=== PATIENT | male | born 1955 | race Caucasian/White ===

== ENCOUNTER → 2019-06-18 | Outpatient (CLI) | payer OTHER, SELFPAY ==
[2016-11-03 18:05] VITALS: BMI 28.3
--- NOTE | 2019-06-18 16:11 | RAD_ITS ---
STUDY: X-RAY - PELVIS AND RIGHT HIP REASON FOR EXAM: Male, 64 years old. Pain of the right hip. TECHNIQUE: 3 views of the pelvis and hip. COMPARISON: None. FINDINGS: There is a non-specific bowel gas pattern. Normal visualized soft tissue structures. Enthesophytes of the iliac crests bilaterally. Mild narrowing of the sacroiliac joints. Enthesophytes of the ischial tuberosities. Normal bilateral superior and inferior pubic rami. Normal pubic symphysis. There are osteoarthritic changes of the femoral head with marginal osteophyte formation. There is osteoarthritic spur formation of the acetabular rim. There is mild articular joint space narrowing of the hip. RAD/HIP, UNI W/ Pelvis 2-3 Views IMPRESSION: The pelvic ring is intact without fracture, osteolytic or blastic bone lesion. Mild to moderate degenerative arthrosis of the right hip. Negative for proximal femoral fracture. Mild narrowing of the sacroiliac joints. Enthesophytes of the iliac crests and initial tuberosities. Electronically Signed: Alia Dean MD at 21:46 EDT , Service support ,
== END | disposition home or self-care (01) ==
LOC: RAD 15:56
PROVIDERS: Family Provider Preventive Medicine Occupational Medicine; PCP Preventive Medicine Occupational Medicine; Referring Provider Preventive Medicine Occupational Medicine; Visit Provider Preventive Medicine Occupational Medicine
DX: M25.551 Pain in right hip (principal)
CPT/HCPCS: 73502

== ENCOUNTER → 2019-08-18 | Outpatient (CLI) | payer OTHER, SELFPAY ==
[2019-08-18 13:04] LABS: PSA,Total- Diagnostic 2.81 ng/mL (0.0-4.0)
== END | disposition home or self-care (01) ==
LOC: LAB 11:44
PROVIDERS: Family Provider Preventive Medicine Occupational Medicine; PCP Preventive Medicine Occupational Medicine; Referring Provider Nurse Practitioner Adult Health; Visit Provider Nurse Practitioner Adult Health
DX: R33.9 Retention of urine, unspecified (principal)
CPT/HCPCS: 36415; 84153

== ENCOUNTER → 2019-08-25 | Outpatient (CLI) | payer OTHER, SELFPAY | END | disposition home or self-care (01) | PROVIDERS: Family Provider Preventive Medicine Occupational Medicine; PCP Preventive Medicine Occupational Medicine; Referring Provider Urology; Visit Provider Urology | DX: R10.9 Unspecified abdominal pain (principal) | CPT/HCPCS: 87086 ==

== ENCOUNTER 2019-09-03 10:41 | Day surgery (SDC) | payer OTHER, SELFPAY ==
[2019-08-29 10:06] VITALS: BP 130/80; RESP 16; TEMP 36.9; O2SAT 96; BMI 27.9
[2019-08-29 12:06] LABS: Hemoglobin A1c 8.2 % (4.2-6.3)
[2019-09-03] VITALS (12 sets, daily range): BP systolic 134–169; BP diastolic 77–95; PULSE 59–80; RESP 16–18; TEMP 36.5–36.9; O2SAT 93–100; BMI 27.9; BMI 27.8
[2019-09-03] MEDS: Lactated Ringers 1,000 ML 100 ML IV (11:33)
[2019-09-03 12:01] LABS: Bedside Glucose 194 mg/dL (70-110)
[2019-09-03] MEDS: Cefazolin 2 GM in 0.9% Normal Saline 100 ML IV (12:19)
--- NOTE | 2019-09-03 12:22 | PCM.DC ---
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 Reason(s) for Visit for Discharge Instructions: TURP You will use the following diet at home:: Regular Discharge Activity: Return to Normal Activity Call your doctor if your incision/area has: Sudden Increased Bleeding Instructions: Transurethral Resection of the Prostate (TURP): Home Recovery Allergies/Adverse Reactions: Allergies Penicillins Allergy (Verified 09/03/19 11:04) Other FEVER cyclobenzaprine [From Flexeril] Adverse Reaction (Verified 09/03/19 11:04) Other TACHYCARDIA & DIAPHORESIS Medications to take at Discharge Glimepiride [Amaryl] 4 mg PO BID 11/03/16 Tamsulosin HCl [Flomax] 0.4 mg PO BID 11/03/16 Aspirin E.C. [Ecotrin] 81 mg PO DAILY@0800 08/29/19 Atorvastatin Calcium [Lipitor] 40 mg PO QHS 08/29/19 Glucosam/Spencer-Msm1/C/Odilon/Bosw [Osteo Bi-Flex Caplet] 1 ea PO BID 08/29/19 Losartan Potassium [Cozaar] 50 mg PO DAILY 08/29/19 Metformin HCl [Glucophage Xr] 500 mg PO BID 08/29/19 Multivitamin [Daily Multiple Vitamin] 1 ea PO DAILY 08/29/19 Potassium 99 mg PO DAILY 08/29/19 Ciprofloxacin [Cipro] 500 mg PO BID #14 tab 09/03/19 The following prescriptions were given: Ciprofloxacin [Cipro] 500 mg PO BID #14 tab Transmission Status: Pending to [id number] Primary Care Physician: Karson Ko DO [Primary Care Provider] - Test Results: Test results from this visit will be discussed in further detail at your follow-up appointment, if applicable. Please Follow Up With: Lili Pittman Dr When: 2 weeks
--- NOTE | 2019-09-03 12:35 | PROS_PTH ---
PATIENT: KITTY MERCADO LOC: [facility] U#:[id number] AGE/SX: 64/M ROOM: RE09/03/[address]: Dr. Jovani Tamayo MD : [id number] BED: DIS: 09/04/2019 SPEC #: [id number] RECD: 09/03/19 16:08 STATUS: JULIO JOANN #: [id number] LUIS: 09/03/19 12:[address]: Jovani Tamayo DEPT: SURGICAL PATHOLOGY RECD BY: Jeremias Mcintosh ENTERED: 09/04/19 11:24 SP TYPE: TURP OTHR DR: Dr. Kitty Ko, DO Tissues: Prostate, NOS Procedures: Surgery Specimen Level IV HEADER OPERATION: Cysto, TUR prostate, Olympus PRE-OP DIAGNOSIS: BPH with obstruction; urinary retention TISSUE SUBMITTED: Prostate tissue MICROSCOPIC DIAGNOSIS Prostate tissue, TUR: Benign prostatic hyperplasia, glandular and stromal type. Focal mild chronic inflammation. SJ:jacqueline 09/05/19 MICROSCOPIC DESCRIPTION Slides are reviewed. GROSS DESCRIPTION Received is one container labeled with the patient's name and designated prostate tissue. The specimen consists of multiple irregular fragments of pink-sanchez, rubbery, soft tissue that in aggregate weigh 2.8 gm and measure in aggregate 7.5 x 2.5 x 0.3 cm. The entire specimen is submitted in three cassettes. / WEST:jacqueline 09/04/19 TC:5 CPT: 98310
--- NOTE | 2019-09-03 12:54 | OP.PCM_ITS ---
Report of Operation Date of Procedure: 09/03/19 Pre-Operative Diagnosis: BPH with retention of urine Post-Operative Diagnosis: Same Surgery/Procedure Performed:: Transurethral resection of the prostate Description of Surgical Findings:: 64-year-old male with retention of urine presents to the operating room for resection of the prostate to restore normal voiding with talked about the risks benefits of a TURP side effects of retrograde ejaculation bleeding infection and risk of incontinence were discussed with the patient in preoperative setting all his questions were addressed. Patient was taken back to the operating of the smooth induction of general anesthesia he was placed in dorsolithotomy position the penis testicles are prepped and draped in usual sterile fashion I went into the bladder first with a 21 [place] cystourethroscope the entire length urethra is normal the sphincter was normal prostate was normal he did have a high riding bladder neck and a very large median lobe causing obstruction I then switched over to the 24 [place] noncontinuous flow resectoscope and I resected the median lobe very carefully not to injure the left or right ureteral orifice I then resected the prostate at the 6 o'clock position of the back to the verumontanum I then resect the right lobe of the prostate left lobe prostate, did a flow test had a nice flow and then resected the prostate had a nice wide open channel the sphincter was intact then placed the catheter in the bladder and continuous bladder irrigation obtained hemostasis the patient was taken back to PACU in good condition Type of Anesthesia:: General Drains: 22fr 3 way - Admit VTE Documentation VTE Present on Admission: No VTE Mechan Device Prophylaxis: SCD's
[2019-09-03] MEDS: 0.9% Normal Saline 1,000 ML 75 ML IV (14:10)
[2019-09-03 14:11] LABS: Bedside Glucose 165 mg/dL (70-110)
[2019-09-03] MEDS: Acetaminophen 325 MG Tablet PO (16:20)
[2019-09-03] MEDS: Glimepiride 4 MG Tablet PO (16:23)
[2019-09-03] MEDS: Tamsulosin HCl 0.4 MG Capsule PO (16:23)
[2019-09-03] MEDS: metFORMIN HCl 500 MG Tablet PO (16:23)
[2019-09-03] MEDS: Ciprofloxacin 400 MG/200 ML BAG 200 MG IV (20:05)
[2019-09-03] MEDS: Docusate Sodium 100 MG Capsule PO (22:44)
[2019-09-03] MEDS: Atorvastatin Calcium 40 MG Tablet PO (22:44)
[2019-09-04] MEDS: 0.9% Normal Saline 1,000 ML 75 ML IV (01:11)
[2019-09-04 04:17] VITALS: BP 132/71; PULSE 53; RESP 18; TEMP 36.5; O2SAT 97
[2019-09-04] MEDS: Acetaminophen 325 MG Tablet PO (07:41)
[2019-09-04] MEDS: Ciprofloxacin 400 MG/200 ML BAG 200 MG IV (08:47)
[2019-09-04] MEDS: Multivitamins,Therapeutic Tablet 1 TABLET PO (08:48)
[2019-09-04] MEDS: metFORMIN HCl 500 MG Tablet PO (08:48)
[2019-09-04] MEDS: Tamsulosin HCl 0.4 MG Capsule PO (08:48)
[2019-09-04] MEDS: Glimepiride 4 MG Tablet PO (08:48)
[2019-09-04] MEDS: Docusate Sodium 100 MG Capsule PO (08:49)
[2019-09-04] MEDS: Pantoprazole Sodium 40 MG Tablet PO (08:49)
[2019-09-04] MEDS: Losartan Potassium 50 MG Tablet PO (08:49)
[2019-09-04 12:36] VITALS: BP 133/76; PULSE 59; RESP 16; TEMP 36.8; O2SAT 98
--- NOTE | 2019-09-06 08:42 | PCM.HP.STD ---
History of Present Illness Date of Admission: 09/03/19 Chief Complaint: BPH with obstruction The patient is a 64 year old male with enlarged prostate presents the hospital for TURP Past Medical History Past Medical History (Chronic Problems): Chronic Problems Hyperlipidemia (Chronic) Controlled diabetes mellitus type II without complication (Chronic) Benign essential hypertension (Chronic) Allergies Penicillins Allergy (Verified 09/03/19 11:04) Other FEVER cyclobenzaprine [From Flexeril] Adverse Reaction (Verified 09/03/19 11:04) Other TACHYCARDIA & DIAPHORESIS Home Medications: Ambulatory Orders Medication Instructions Recorded Glimepiride [Amaryl] 4 mg PO BID 11/03/16 Tamsulosin HCl [Flomax] 0.4 mg PO BID 11/03/16 Atorvastatin Calcium [Lipitor] 40 mg PO QHS 08/29/19 Glucosam/Spencer-Msm1/C/Odilon/Bosw 1 ea PO BID 08/29/19 [Osteo Bi-Flex Caplet] Losartan Potassium [Cozaar] 50 mg PO DAILY 08/29/19 Metformin HCl [Glucophage Xr] 500 mg PO BID 08/29/19 Multivitamin [Daily Multiple 1 ea PO DAILY 08/29/19 Vitamin] Potassium 99 mg PO DAILY 08/29/19 Ciprofloxacin [Cipro] 500 mg PO BID #14 tab 09/03/19 Surgical History: noncontributory Smoking Status: Former smoker Tobacco Use: Non-smoker VTE Information - Inpt Only VTE Present on Admission: No - Physical Exam Vitals/I&O's: Vital Signs Temp Pulse Resp BP Pulse Ox 98.2 F 59 L 16 133/76 H 98 09/04/19 12:36 09/04/19 12:36 09/04/19 12:36 09/04/19 12:36 09/04/19 12:36 Oxygen Delivery Method Room Air Weight: 75.7 kg Body Mass Index (BMI) 27.8 Finger Stick Blood Glucose 165 Intake and Output for Last 24 Hours 09/04/19 09/05/19 09/06/19 23:59 23:59 23:59 Intake Total 1928.75 / 1928.75 Output Total 4350 / 4350 Balance -2421.25 / -2421.25 General: Alert, Oriented x3, Cooperative HEENT: Atraumatic, PERRLA, EOMI, Normocephalic Neck: Supple, No JVD, Negative Carotid Bruits Lungs: Clear to auscultation, Normal air movement Cardiovascular: Regular rate, No murmurs Abdomen: Bowel Sounds Present, Soft, Non Tender Extremities: No edema, Capillary Refill Less than 3 Seconds Skin: No rashes, No breakdown Musculoskeletal: No Tenderness to Palpation of Joints or Extremities Neurological: Cranial nerves II-XII grossly intact Psych/Mental Status: Normal Affect, Appropriate Assessment/Plan Plan for TURP
== END 2019-09-04 11:16 | disposition home or self-care (01) ==
LOC: SDC 10:41 → AC 10:43 → MS3 14:23
PROVIDERS: Anesthesiology; Family Provider Preventive Medicine Occupational Medicine; PCP Preventive Medicine Occupational Medicine; Referring Provider Urology; Visit Provider Urology
PROC: (CPT 52601; principal; 2019-09-03 12:25)
DX: N40.1 Benign prostatic hyperplasia with lower urinary tract symptoms (principal); R33.9 Retention of urine, unspecified; N41.1 Chronic prostatitis; E11.9 Type 2 diabetes mellitus without complications; I10 Essential (primary) hypertension; E78.5 Hyperlipidemia, unspecified; K21.9 Gastro-esophageal reflux disease without esophagitis; Z88.0 Allergy status to penicillin; Z79.84 Long term (current) use of oral hypoglycemic drugs; Z86.73 Personal history of transient ischemic attack (TIA), and cerebral infarction without residual deficits; Z87.891 Personal history of nicotine dependence
CPT/HCPCS: 52601; 36415; 82962; 83036; 88305; 99251; J7030; J7120; G0463; J0744; J2405

== ENCOUNTER 2019-09-15 10:41 | Emergency (ER) | payer OTHER, SELFPAY ==
[2019-09-03 14:54] VITALS: BMI 27.8
[2019-09-15 10:43] VITALS: BP 154/85; PULSE 89; RESP 18; TEMP 36.4; O2SAT 99; BMI 26.6
--- NOTE | 2019-09-15 10:58 | CT_ITS ---
STUDY: CT ABDOMEN AND PELVIS WITHOUT CONTRAST REASON FOR EXAM: Male, 64 years old. Left flank pain. History of UTI. RADIATION DOSAGE (If Supplied By Facility): CTDIvol = ( 8.01 ) mGy, DLP = ( 422.30 ) mGycm TECHNIQUE: Transaxial images were obtained from the dome of the diaphragm to the symphysis pubis without oral contrast, and without intravenous contrast. Sagittal and coronal images were reconstructed. Individualized dose optimization techniques were used for this CT. COMPARISON: None. FINDINGS: The visualized lung bases are unremarkable. The visualized portions of the heart are within normal limits. Normal liver. Normal gallbladder and extrahepatic biliary system. Normal spleen. Normal pancreas. Normal bilateral adrenal glands. Normal right kidney. Normal left kidney. A left-sided retroaortic renal vein is seen. There is a small hiatal hernia. Normal small intestine. Normal colon. The appendix is visualized and appears normal. There is scattered atherosclerotic calcification of the abdominal aorta, without a demonstrated aneurysm. Normal inferior vena cava. Normal retroperitoneum. Diffuse bladder wall thickening. Soft tissue density seen at the bladder base. Correlation with the cystoscopy is recommended. Prostatic calcification. There is a small umbilical hernia containing fat. There are diffuse degenerative changes of the visualized lumbar spine. Bony prominence of the superior aspect of both iliac bones. CT/Abdomen/Pelvis without Cont IMPRESSION: Diffuse bladder wall thickening with findings suggestive of soft tissue density at the bladder base. Correlation with cystoscopy is recommended. Electronically Signed: Rachid Cabrera, at 12:18 EST , Service support ,
--- NOTE | 2019-09-15 10:59 | ED.VIS.GEN ---
History of Present Illness Detail of Chief Complaint: Left flank pain, hematuria Informant: Patient Onset: Days - 4 days Context: Gradual Onset Timing: Waxes and wanes Current Severity: Moderate Maximum Severity: Moderate Narrative: Patient had cystoscopy and TURP performed September [address] Tamayo. Patient states he had approximately 3 days of hematuria following his surgery. Over the past 4 days he has noted increased hematuria and left flank pain. He denies fever or chills. He is not passing clots. He believes he is emptying his bladder. - Past Medical History (1) Benign essential hypertension Status: Chronic (2) Controlled diabetes mellitus type II without complication Status: Chronic (3) Hyperlipidemia Status: Chronic Past Medical History - Allergies and Home Meds Allergies/Adverse Reactions: Allergies Penicillins Allergy (Verified 09/15/19 10:43) Other FEVER cyclobenzaprine [From Flexeril] Adverse Reaction (Verified 09/15/19 10:43) Other TACHYCARDIA & DIAPHORESIS Primary Care Physician: Jovani Tamayo MD [STAFF PHYSICIAN] - 5-7 Days Karson Ko DO [Primary Care Provider] - Doctors: Dr. Tamayo Prior records reviewed: Yes Surgical History: noncontributory Smoking Status: Former smoker Review of Systems General: Denies: Chills, Fever Eyes: Denies: Visual changes - bilaterally ENT: Denies: Bilateral ear pain Cardiovascular: Denies: Chest pain Respiratory: Denies: Dyspnea, Cough Gastrointestinal: Reports: Abdominal pain - Left flank pain Genitourinary: Reports: Hematuria Musculoskeletal: Reports: Back pain - Left flank. Denies: Extremity Pain Skin: Denies: Rash Neurological: Denies: Headache Hematologic: Denies: Easy bruising, Easy bleeding Allergy: Denies: Uticaria Physical Exam Vital Signs/Narrative: Vital Signs Temp Pulse Resp BP Pulse Ox 09/15/19 10:43 97.5 F L 89 18 154/85 H 99 Inital Vital Signs reviewed: Yes General: Well nourished, Well developed Head: Normocephalic ENT: Moist mucous membranes Neck: Supple Cardiovascular: Regular rate, Regular rhythm Respiratory: No distress, CTA bilaterally Abdomen: Soft, Normal bowel sounds, Tender - Minimal tenderness in the left lower quadrant.. Negative for: Guarding, Rebound tenderness Back: CVA tenderness Skin: Normal color, No rash Neurological: Alert, Oriented x3 Psychological: Normal affect Diagnostic/Tx/Re-eval Impressions Abdomen/Pelvis CT 09/15/19 10:58 IMPRESSION: Diffuse bladder wall thickening with findings suggestive of soft tissue density at the bladder base. Correlation with cystoscopy is recommended. Electronically Signed: Rachid Cabrera, at 12:18 EST , Service support , 09/15/19 10:58 Abdomen/Pelvis without Cont [CT] Stat Laboratory Results 09/15/19 09/15/19 09/15/19 11:10 11:10 12:30 WBC 10.5 RBC 5.24 Hgb 15.3 Hct 46.2 MCV 88.2 MCH 29.2 MCHC 33.1 RDW Std Deviation 41.8 RDW Coeff of Star 12.9 Plt Count 244 MPV 9.2 Immature Gran % (Auto) 0.400 Neut % (Auto) 74.6 H Lymph % (Auto) 16.0 L [place] % (Auto) 7.1 Eos % (Auto) 1.6 Baso % (Auto) 0.3 Absolute Neuts (auto) 7.9 H Absolute Lymphs (auto) 1.69 Nucleated RBC % 0 Sodium 138 Potassium 4.1 Chloride 103 Carbon Dioxide 27.0 Anion Gap 8 BUN 12 Creatinine 1.02 Estim Creat Clear Calc 64.48 Est GFR (MDRD) Af Amer 95 Est GFR (MDRD) Non-Af 78 BUN/Creatinine Ratio 11.8 Glucose 210 H Calcium 9.4 Urine Color Red Urine Clarity Sl. Cloudy Urine pH 6.0 Ur Specific [place] 1.015 Urine Protein 100 H Urine Glucose (UA) 100 H Urine Ketones 5 H Urine Occult Blood 250 H Urine Nitrite Negative Urine Bilirubin Negative Urine Urobilinogen Normal Ur Leukocyte Esterase 500 H Urine RBC > 100 SEEN Urine WBC 25-50 SEEN Ur Squamous Epith Cells 0-5 SEEN Urine Bacteria RARE Urine Mucus 0 SEEN - Medical Decision Making Patient was given morphine and Zofran for pain while in the emergency room. I spoke with Dr. Tamayo, the patient's urologist. He states that patient can have recurrent bleeding after a TURP for up to 6 weeks. He thinks he likely just developed another episode of bleeding. He asked that we send the urine culture off and start the patient on antibiotics. Patient is instructed to increase fluids over the next several days. Patient is to return for worsening symptoms or any sensation is not able to urinate. He voices understanding and agreement. He will follow-up with Dr. Tamayo in the office. ED Disposition - Plan for ED Patient: Disposition: Home or Assisted Living Diagnosis: Hematuria, Cystitis Instructions: Bladder Infection, Male (Adult) Prescriptions: Ciprofloxacin [Cipro] 500 mg PO BID #14 tab Transmission Status: Received by [id number] Hydrocodone Bitart/Apap 5-325 [[place] 5MG-325MG] 1 tab PO Q6H PRN PRN 3 Days #10 tab PRN Reason: Pain Transmission Status: Received by [id number] Referrals: Karson Ko DO [Primary Care Provider] - Jovani Tamayo MD [STAFF PHYSICIAN] - 5-7 Days
[2019-09-15] MEDS: Ondansetron 4 MG/2 ML Vial IV (11:09)
[2019-09-15] MEDS: Morphine 4 MG/ML Syringe IV (11:10)
[2019-09-15] MEDS: 0.9% Normal Saline 1,000 ML 150 ML IV (11:10)
[2019-09-15 11:27] LABS: Absolute Lymphocyte Count 1.69 X10^3/uL (0.83-4.51); Absolute Neutrophil Count 7.9 X10^3/uL (2.0-7.7); Basophil# 0.03 X10^3/uL; Basophil% 0.3 % (0-1); Eosinophil# 0.17 X10^3/uL; Eosinophils% 1.6 % (0-5); Hematocrit 46.2 % (40-54); Hemoglobin 15.3 g/dL (13.0-16.5); Lymphocyte # 1.69 X10^3/ul (4.0); Mean Corp Hgb Conc 33.1 g/dL (32-36); Mean Corpuscular Hgb 29.2 pg (27.0-32.0); Mean Corpuscular Volume 88.2 fL (80-94); Mean Platelet Vol. 9.2 fl (6.2-12.0); Monocyte# 0.75 X10^3/uL; Monocyte% 7.1 % (0-10); NRBC Flagged by Analyzer 0 % (0-5); Neutrophil # 7.85 X10^3/uL (2.7-7.7); Neutrophil % 74.6 % (47-70); Platelet Count 244 K/mm3 (150-450); RBC Distribution Width CV 12.9 % (11.6-14.6); RBC Distribution Width SD 41.8 fl (35.1-43.9); Red Blood Count 5.24 M/mm3 (4.6-6.2); White Blood Count 10.5 K/mm3 (4.4-11.0)
[2019-09-15 11:43] LABS: Anion Gap 8 (5-15); BUN 12 mg/dL (7-18); BUN/Creat Ratio 11.8 RATIO (10-20); Calcium,Total 9.4 mg/dL (8.5-10.1); Chloride 103 mmol/L (98-107); Creatinine, Serum 1.02 mg/dL (0.70-1.30); EST Glomerular Filtration Rate 78 mL/min (>60); Est Glom Filt Rate - Afr Amer 95 mL/min (>60); Estimated Creatinine Clearance 64.48 ml/min; Glucose 210 mg/dL (74-106); Potassium 4.1 mmol/L (3.5-5.1); Sodium Level 138 mmol/L (136-145)
[2019-09-15 11:54] VITALS: BP 126/82; PULSE 75; RESP 16; O2SAT 98
[2019-09-15 12:31] LABS: Mucous, Urine 0 SEEN /hpf (<or=2+)
[2019-09-15 12:37] LABS: Color, Urine Red (Yellow); Glucose, Dipstick 100 mg/dl (Normal); Ketone-Dipstick 5 mg/dl (Negative); Leukocyte Esterase-Dipstick 500 /ul (Negative); Nitrite-Dipstick Negative (Negative); Occult Blood-Urine 250 /ul (Negative); Protein-Dipstick 100 mg/dl (Negative); Specific Gravity, Urine 1.015 (1.002-1.030); Urine Bilirubin Dipstick Negative (Negative); Urine Clarity Sl. Cloudy (Clear); Urine Urobilinogen Normal (Normal)
[2019-09-15 12:39] LABS: Red Blood Cells-Urine > 100 SEEN /hpf (0-5)
[2019-09-15 12:40] LABS: Bacteria RARE /hpf (None Seen); Squamous Epithelial Cells - UA 0-5 SEEN /hpf (0-5); White Blood Cells 25-50 SEEN /hpf (0-5)
--- NOTE | 2019-09-15 12:55 | ED.RN ---
BLADDER SCANNED 15-20 POST VOID. PT REFUSED TO ATTEMPT TO URINATE AGAIN.
[2019-09-15] MEDS: Ciprofloxacin 500 MG Tablet PO (13:30)
== END 2019-09-15 13:37 | disposition home or self-care (01) ==
PROVIDERS: Emergency Provider Emergency Medicine; Family Provider Preventive Medicine Occupational Medicine; PCP Preventive Medicine Occupational Medicine
DX: N30.91 Cystitis, unspecified with hematuria (principal); I10 Essential (primary) hypertension; E11.9 Type 2 diabetes mellitus without complications; E78.5 Hyperlipidemia, unspecified; Z79.84 Long term (current) use of oral hypoglycemic drugs; Z79.899 Other long term (current) drug therapy; Z87.891 Personal history of nicotine dependence
CPT/HCPCS: 74176; 80048; 81001; 85025; 87086; 96361; 96374; 96375; 99285; J7030; A4216; J2405

== ENCOUNTER 2019-10-21 21:28 | Inpatient (IN) | payer OTHER, SELFPAY ==
[2019-10-21 21:28] VITALS: BP 191/108; PULSE 68; RESP 16; TEMP 36.3; O2SAT 98; BMI 28.9
[2019-10-21 23:44] LABS: Bacteria 0 SEEN /hpf (None Seen); Mucous, Urine 0 SEEN /hpf (<or=2+); Squamous Epithelial Cells - UA 0 SEEN /hpf (0-5)
[2019-10-21 23:45] LABS: Color, Urine Red (Yellow); Glucose, Dipstick Normal (Normal); Ketone-Dipstick 15 mg/dl (Negative); Leukocyte Esterase-Dipstick Negative /ul (Negative); Nitrite-Dipstick Negative (Negative); Occult Blood-Urine 250 /ul (Negative); Protein-Dipstick 500 mg/dl (Negative); Specific Gravity, Urine 1.015 (1.002-1.030); Urine Bilirubin Dipstick Negative (Negative); Urine Clarity Turbid (Clear); Urine Urobilinogen Normal (Normal)
--- NOTE | 2019-10-21 23:56 | ED.DCSUM_ITS ---
History of Present Illness Chief Complaint: Complaint Narrative: Patient presenting for evaluation secondary to hematuria. Patient reports that he had a TURP procedure performed in the middle of August. He is been doing well since then. Patient states that at about 6 PM today he had a sudden onset of severe hematuria. He reports that he is urinating clots. He is having some difficulty with starting his stream. He does state that he feels that he is able to reasonably empty his bladder. Denies any flank pain. He denies any fevers. He denies any real pain associated with this at all. He is not on any sort of anticoagulants. No exacerbating relieving factors to the patient's symptoms. Past Medical History - Allergies and Home Meds Allergies/Adverse Reactions: Allergies Penicillins Allergy (Verified 09/15/19 10:43) Other FEVER cyclobenzaprine [From Flexeril] Adverse Reaction (Verified 09/15/19 10:43) Other TACHYCARDIA & DIAPHORESIS Past Medical History: - - Diabetes, hypertension, hyperlipidemia Surgical History: noncontributory Smoking Status: Former smoker Review of Systems All systems negative except as indicated General: Denies: Chills, Fever, Sweats Eyes: Denies: Visual changes - bilaterally, Diplopia ENT: Denies: Rhinorrhea, Sore throat Cardiovascular: Denies: Chest pain, Palpitations Respiratory: Denies: Dyspnea, Cough, Dyspnea on exertion Gastrointestinal: Denies: Abdominal pain, Nausea, Vomiting, Diarrhea, Melena, Hematochezia Genitourinary: Reports: Hematuria Musculoskeletal: Denies: Back pain, Extremity Pain Skin: Denies: Rash, Wounds Neurological: Denies: Headache, Weakness, Numbness Physical Exam Vital Signs/Narrative: Vital Signs Temp Pulse Resp BP Pulse Ox 10/21/19 21:28 97.3 F L 68 16 191/108 H 98 Inital Vital Signs reviewed: Yes General: Well nourished, Well developed, No Acute Distress Head: Normocephalic, Atraumatic Eyes: Perrl, EOMI ENT: Moist mucous membranes, No rhinorrhea Neck: Supple, Nontender Cardiovascular: Regular rate, Regular rhythm, No murmurs Respiratory: No distress, CTA bilaterally, Chest nontender Abdomen: Soft, Nontender, Nondistended, Normal bowel sounds Back: Nontender, Normal Inspection Extremities: Nontender, No edema Skin: Normal color, No rash Neurological: Alert, Oriented x3, Cranial nerves II-XII grossly intact, Normal Strength, Normal Sensation Psychological: Normal affect, Normal Mood Diagnostic/Tx/Re-eval - Medical Decision Making Patient presented secondary to hematuria. Three-way Vasquez catheter was placed and continuous irrigation was initiated. Urinalysis shows gross blood, but no significant bacteria. After over an hour of continuous irrigation the patient is continuing to have clots that we will clogged the three-way catheter intermittently and is continuing to have gross hematuria. I believe he requires admission. I discussed this with Dr. Tamayo ED Disposition - Plan for ED Patient: Disposition: Acute Care Hospital [facility] Diagnosis: Hematuria
[2019-10-22] VITALS (8 sets, daily range): BP systolic 114–153; BP diastolic 74–96; PULSE 63–81; RESP 16–18; TEMP 36.7–37.2; O2SAT 95–97; BMI 27.6; BMI 27.7
[2019-10-22 00:33] LABS: Red Blood Cells-Urine > 100 SEEN /hpf (0-5); White Blood Cells 10-25 SEEN /hpf (0-5)
[2019-10-22] MEDS: Lidocaine 2% Jelly 1 APPLIC Tube TOPICAL (00:48)
[2019-10-22] MEDS: 0.9% Saline Lock 10 ML Syringe IV ×2 (06:32→08:39)
--- NOTE | 2019-10-22 07:50 | HP.PCM_ITS ---
History of Present Illness Date of Admission: 10/22/19 Chief Complaint: Gross hematuria The patient is a 64 year old male who underwent a TURP for BPH obstruction in August was admitted to the hospital overnight for gross hematuria suddenly came on until now has been doing well with no bleeding whatsoever is been doing back to regular work does take a low-dose aspirin, admitted with a three-way catheter for gross hematuria. Past Medical History Past Medical History (Chronic Problems): Chronic Problems Hyperlipidemia (Chronic) Controlled diabetes mellitus type II without complication (Chronic) Benign essential hypertension (Chronic) Allergies Penicillins Allergy (Verified 09/15/19 10:43) Other FEVER cyclobenzaprine [From Flexeril] Adverse Reaction (Verified 09/15/19 10:43) Other TACHYCARDIA & DIAPHORESIS Home Medications: Ambulatory Orders Medication Instructions Recorded Glimepiride [Amaryl] 4 mg PO BID 11/03/16 Tamsulosin HCl [Flomax] 0.4 mg PO DAILY 11/03/16 Atorvastatin Calcium [Lipitor] 40 mg PO QHS 08/29/19 Glucosam/Spencer-Msm1/C/Odilon/Bosw 1 ea PO BID 08/29/19 [Osteo Bi-Flex Caplet] Losartan Potassium [Cozaar] 50 mg PO DAILY 08/29/19 Metformin HCl [Glucophage Xr] 500 mg PO BID 08/29/19 Multivitamin [Daily Multiple 1 ea PO DAILY 08/29/19 Vitamin] Aspirin [Adult Low Dose Aspirin EC] 1 tab PO DAILY 10/21/19 Surgical History: noncontributory Smoking Status: Former smoker VTE Information - Inpt Only VTE Present on Admission: No Patient Problems: Active and Suspected Problems Hematuria (Acute) - Physical Exam Vitals/I&O's: Vital Signs Temp Pulse Resp BP Pulse Ox 99.0 F 63 18 147/85 H 97 10/22/19 03:48 10/22/19 03:48 10/22/19 03:48 10/22/19 03:48 10/22/19 03:48 Oxygen Delivery Method Room Air Weight: 75.4 kg Body Mass Index (BMI) 27.6 Finger Stick Blood Glucose 165 Intake and Output for Last 24 Hours 10/20/19 10/21/19 10/22/19 23:59 23:59 23:59 Intake Total 200 / 200 Output Total 6475 / 6475 Balance -6275 / -6275 General: Alert, Oriented x3, Cooperative HEENT: Atraumatic, PERRLA, EOMI, Normocephalic Neck: Supple, No JVD, Negative Carotid Bruits Lungs: Clear to auscultation, Normal air movement Cardiovascular: Regular rate, No murmurs Abdomen: Bowel Sounds Present, Soft, Non Tender Extremities: No edema, Capillary Refill Less than 3 Seconds Skin: No rashes, No breakdown Musculoskeletal: No Tenderness to Palpation of Joints or Extremities Neurological: Cranial nerves II-XII grossly intact Psych/Mental Status: Normal Affect, Appropriate Laboratory Results 10/21/19 22:50: Urine Color Red, Urine Clarity Turbid, Urine pH 8.0, Ur Specific [place] 1.015, Urine Protein 500 H, Urine Glucose (UA) Normal, Urine Ketones 15 H, Urine Occult Blood 250 H, Urine Nitrite Negative, Urine Bilirubin Negative, Urine Urobilinogen Normal, Ur Leukocyte Esterase Negative, Urine RBC > 100 SEEN, Urine WBC 10-25 SEEN, Ur Squamous Epith Cells 0 SEEN, Urine Bacteria 0 SEEN, Urine Mucus 0 SEEN Current Medications Acetaminophen (Tylenol) 500 mg PO Q4H PRN PRN PRN Reason: Pain Score 1-10/10 Sodium Chloride () 250 mls @ 15 mls/hr IV .[id number] PRN PRN Reason: Saline Flush Sodium Chloride () 250 mls @ 15 mls/hr IV .[id number] PRN PRN Reason: Additional IVPB Infusion Cefazolin Sodium () 1 gm in 50 mls @ 100 mls/hr IV Q8 RUBINA Sodium Chloride () 1,000 mls @ 30 mls/hr IV .[id number] RUBINA Sodium Chloride () 10 - 40 ml IV UD PRN PRN Reason: SALINE FLUSH Last Admin: 10/22/19 06:32 Dose: 10 ml Documented by: Assessment/Plan All Active Problems Hematuria (Acute) Continue with continuous bladder irrigation, regular diet, I do not anticipate any operative needs right now. Once bleeding stops we will remove the catheter for voiding trial.
[2019-10-22] MEDS: Cefazolin 1 GM/50 ML BAG IV ×3 (08:36→21:59)
[2019-10-22] MEDS: Tamsulosin HCl 0.4 MG Capsule PO (09:43)
[2019-10-22] MEDS: 0.9% Normal Saline 1,000 ML 30 ML IV (09:43)
[2019-10-22] MEDS: Multivitamins,Therapeutic Tablet 1 TABLET PO (09:43)
[2019-10-22] MEDS: Losartan Potassium 25 MG Tablet 50 MG PO (09:43)
[2019-10-22] MEDS: Glimepiride 4 MG Tablet PO ×2 (09:43→16:58)
[2019-10-22] MEDS: metFORMIN (XR) 500 MG Tablet PO ×2 (09:43→17:00)
--- NOTE | 2019-10-22 14:40 | CASEMGMT ---
RN CM Face to Face with patient for initial transition planning/care coordination assessment. RN CM introduced self and role at [facility]. Patient lying in bed, alert and oriented. Patient willing to participate in assessment and is able to answer all questions appropriately. Care providers, pharmacy, and demographics verified. Patient wishes to discharge home, denies need for home health at this time. Patient states he has no further needs or concerns at this time. CM to follow for discharge planning needs that may arise. PCP: Stefani Specialists: [facility] Preferred Pharmacy: [facility] Insurance: MMO Prescription Benefit: yes Living Will/HPOA: yes, Addie Daigle LNOK: , step son Living Arrangements: Patient lives with and step son in 1 story home. Patient is independent at home. Transportation: self, family DME/HHC: Patient has BP cuff and glucometer at home. Patient denies HHC. Disposition Plan: Patient to discharge home with family support and follow-up plans in place. Luz WELDON, RN, CM
[2019-10-22] MEDS: Atorvastatin Calcium 40 MG Tablet PO (22:00)
[2019-10-23 03:21] VITALS: BP 121/69; PULSE 79; RESP 16; TEMP 36.6; O2SAT 97
[2019-10-23] MEDS: Cefazolin 1 GM/50 ML BAG IV (05:19)
--- NOTE | 2019-10-23 07:40 | PCM.PN.BLA ---
Progress Note Urine looks clear, will DC Vasquez catheter, if he able to urinate today then will discharge him home. Instructions a hold all blood thinners and not to return to work and need to see him next week.
--- NOTE | 2019-10-23 07:41 | PCM.DC.URO ---
Discharge Diet: Light diet - advance as tolerated Discharge Activity: Return to Normal Activity Return to work on:: 11/03/19 Lifting Restrictions: no lifting Call your doctor if your incision/area has: Sudden Increased Bleeding Suture Line Care: Avoid Pulling/Pushing, Avoid Pinching/Bending Allergies/Adverse Reactions: Allergies Penicillins Allergy (Verified 09/15/19 10:43) Other FEVER cyclobenzaprine [From Flexeril] Adverse Reaction (Verified 09/15/19 10:43) Other TACHYCARDIA & DIAPHORESIS Medications to take at Discharge Glimepiride [Amaryl] 4 mg PO BID 11/03/16 Tamsulosin HCl [Flomax] 0.4 mg PO DAILY 11/03/16 Atorvastatin Calcium [Lipitor] 40 mg PO QHS 08/29/19 Glucosam/Spencer-Msm1/C/Odilon/Bosw [Osteo Bi-Flex Caplet] 1 ea PO BID 08/29/19 Losartan Potassium [Cozaar] 50 mg PO DAILY 08/29/19 Metformin HCl [Glucophage Xr] 500 mg PO BID 08/29/19 Multivitamin [Daily Multiple Vitamin] 1 ea PO DAILY 08/29/19 Docusate Sodium [Colace] 100 mg PO BID #20 cap 10/22/19 Hydrocodone/Acetaminophen [Pierce 5-325 Tablet] 1 ea PO Q4H PRN PRN 5 Days #20 tab 10/22/19 The following prescriptions were given: Docusate Sodium [Colace] 100 mg PO BID #20 cap [facility]: [id number] Hydrocodone/Acetaminophen [Pierce 5-325 Tablet] 1 ea PO Q4H PRN PRN 5 Days #20 tab PRN Reason: Pain Score 1-10/10 Transmission Status: [id number] Primary Care Physician: Karson Ko DO [Primary Care Provider] - Test Results: Test results from this visit will be discussed in further detail at your follow-up appointment, if applicable. Please Follow Up With: Jovani Tamayo MD When: please call to make an appointment.
[2019-10-23 07:45] VITALS: BP 136/75; PULSE 80; RESP 16; TEMP 36.7; O2SAT 94
[2019-10-23 07:48] VITALS: PULSE 70
[2019-10-23] MEDS: Tamsulosin HCl 0.4 MG Capsule PO (07:55)
[2019-10-23] MEDS: Glimepiride 4 MG Tablet PO (07:55)
[2019-10-23] MEDS: Losartan Potassium 25 MG Tablet 50 MG PO (07:56)
[2019-10-23] MEDS: metFORMIN (XR) 500 MG Tablet PO (07:56)
[2019-10-23] MEDS: Multivitamins,Therapeutic Tablet 1 TABLET PO (07:56)
[2019-10-23 12:28] VITALS: BP 141/80; PULSE 94; RESP 16; TEMP 36.8; O2SAT 96
== END 2019-10-23 12:46 | disposition home or self-care (01) | DRG 696 ==
LOC: ED 23:36 → MS3 10-22 02:15
PROVIDERS: Admitting Provider Urology; Emergency Provider Emergency Medicine; Family Provider Preventive Medicine Occupational Medicine; PCP Preventive Medicine Occupational Medicine; Visit Provider Urology
DX: R31.0 Gross hematuria (principal); Z79.82 Long term (current) use of aspirin; E78.5 Hyperlipidemia, unspecified; I10 Essential (primary) hypertension; E11.9 Type 2 diabetes mellitus without complications; N40.0 Benign prostatic hyperplasia without lower urinary tract symptoms; Z79.84 Long term (current) use of oral hypoglycemic drugs; Z79.899 Other long term (current) drug therapy; Z87.891 Personal history of nicotine dependence
CPT/HCPCS: 51702; 81001; 99284; J7030; J7050; A4216

== ENCOUNTER 2022-03-01 08:56 | Observation (INO) | payer MEDICARE, OTHER, SELFPAY ==
--- NOTE | 2022-02-24 07:46 | EKG12_ITS ---
Test Reason : PRE OP Blood Pressure : / mmHG Vent. Rate : 055 BPM Atrial Rate : 055 BPM P-R Int : 256 ms QRS Dur : 118 ms QT Int : 458 ms P-R-T Axes : 022 009 030 degrees QTc Int : 438 ms Sinus bradycardia with 1st degree A-V block Otherwise normal ECG Confirmed by NATHEN CHACKO, AMANDA ([id number]), brands editor YOVANY CARRILLO ([id number]) on 02/27/2022 1:29:00 PM Referred By: Jovani Tamayo Confirmed By:AMANDA SENA MD
[2022-02-24 08:29] LABS: Hematocrit 43.3 % (40-54); Hemoglobin 14.4 g/dL (13.0-16.5); Mean Corp Hgb Conc 33.3 g/dL (32-36); Mean Corpuscular Hgb 30.4 pg (27.0-32.0); Mean Corpuscular Volume 91.5 fL (80-94); Mean Platelet Vol. 9.5 fl (6.2-12.0); Platelet Count 270 K/mm3 (150-450); RBC Distribution Width CV 12.7 % (11.6-14.6); RBC Distribution Width SD 42.5 fl (35.1-43.9); Red Blood Count 4.73 M/mm3 (4.6-6.2); White Blood Count 9.8 K/mm3 (4.4-11.0)
[2022-02-24 09:08] LABS: Anion Gap 7 (5-15); BUN 25 mg/dL (7-18); BUN/Creat Ratio 20.7 RATIO (10-20); Calcium,Total 9.3 mg/dL (8.5-10.1); Chloride 103 mmol/L (98-107); Creatinine, Serum 1.21 mg/dL (0.70-1.30); EST Glomerular Filtration Rate 64 mL/min (>60); Est Glom Filt Rate - Afr Amer 77 mL/min (>60); Glucose 192 mg/dL (74-106); Potassium 4.4 mmol/L (3.5-5.1); Sodium Level 137 mmol/L (136-145)
[2022-02-24 09:24] LABS: Hemoglobin A1c 9.1 % (3.8-5.6)
[2022-03-01] VITALS (8 sets, daily range): BP systolic 140–165; BP diastolic 73–87; PULSE 54–71; RESP 14–18; TEMP 36.4–36.9; O2SAT 94–100; BMI 27.4
--- NOTE | 2022-03-01 | PROS_PTH ---
PATIENT: KITTY MERCADO LOC: [facility]3 U#:[id number] AGE/SX: 66/M [place] [facility] [place]01/[address]: Dr. Jovani Tamayo MD : [id number] BED: 1 DIS: 03/02/2022 SPEC #: [id number] RECD: 03/01/22 13:00 STATUS: JULIO DAVID #: [id number] LUIS: 03/01/22 00:[address]: Jovani Tamayo DEPT: SURGICAL PATHOLOGY RECD BY: Jah Caldwell ENTERED: 03/01/22 13:00 SP TYPE: TURP OTHR DR: Dr. Kitty Ko DO Tissues: Prostate, NOS Procedures: Surgery Specimen Level IV HEADER OPERATION: Cysto, TUR prostate, Olympus PRE-OP DIAGNOSIS: BPH with obstruction TISSUE SUBMITTED: Prostate tissue MICROSCOPIC DIAGNOSIS Prostate, transurethral resection: Benign nodular hyperplasia. Mild chronic inflammation. Urothelium with mild chronic inflammation. AM:jacqueline 03/02/2022 MICROSCOPIC DESCRIPTION Slides are reviewed. GROSS DESCRIPTION Received is one container labeled with the patient's name and designated prostate tissue. The specimen consists of multiple irregular fragments of pink-sanchez, rubbery, soft tissue that in aggregate weigh 3.7 gm and measure in aggregate 4 x 4 x 1 cm. The entire specimen is submitted in four cassettes. / SJ:jacqueline 03/01/2022 TC:3 CPT: 75295
[2022-03-01 07:51] LABS: Prothrombin Time Fingerstick 12.6 SEC (11.7-14.9)
[2022-03-01] MEDS: Lactated Ringers 1,000 ML 15 ML IV (08:16)
[2022-03-01 08:26] LABS: Bedside Glucose 274 mg/dL (74-106)
--- NOTE | 2022-03-01 09:03 | PCM.HP.STD ---
HPI - General HPI Narrative KITTY MERCADO, is a 66 M who presents for TUrP for obstruction and Bph PFSH Medical History (Updated 02/22/22 @ 08:25 by Sara Novoa) Back pain Bradycardia Cardiology follow-up encounter Diabetes Dietary restriction Former smoker Heartburn High cholesterol History of atrial fibrillation History of echocardiogram History of irregular heartbeat History of lipoma History of stress test History of ulceration Hypertension Migraine headache Personal history of retained foreign body fully removed Prostate disease TIA (transient ischemic attack) Wears glasses Home Medications glimepiride 4 mg PO BID 11/03/16 [History Last Taken Unknown] atorvastatin 40 mg PO DAILY 08/29/19 [History Last Taken 03/01/22] bfoptqug-hupl-onp0-C-aguilar-bosw 1 ea PO BID 08/29/19 [History Last Taken Unknown] losartan 50 mg PO DAILY 08/29/19 [History Last Taken 03/01/22] metformin 1,000 mg PO BID 08/29/19 [History Last Taken Unknown] multivitamin 1 ea PO DAILY 08/29/19 [History Last Taken Unknown] atenolol 25 mg PO DAILY 02/22/22 [History Last Taken 03/01/22] finasteride 5 mg PO DAILY 02/22/22 [History Last Taken Unknown] flecainide 100 mg PO Q12H 02/22/22 [History Last Taken 03/01/22] warfarin 5 mg PO SUMOWEFRSA 02/22/22 [History Last Taken 02/20/22] warfarin 7 mg PO TUTH 02/22/22 [History Last Taken 02/20/22] ciprofloxacin HCl [Cipro] 500 mg PO BID #10 tab 03/01/22 [Rx Last Taken Unknown] Allergy/AdvReac Type Severity Reaction Status Date / Time adhesive tape Allergy Rash Verified 03/01/22 07:58 Penicillins Allergy Other Verified 03/01/22 07:58 cyclobenzaprine AdvReac Other Verified 03/01/22 07:58 [From Flexeril] Surgical History (Updated 02/22/22 @ 08:25 by Sara Novoa) History of transurethral resection of prostate Hx of left knee surgery Social History Smoking Status: Former smoker Vital Signs Vital Signs Vital Signs: 03/01/22 08:06 Temperature 97.6 F L Temperature Source Temporal Pulse Rate 54 L Respiratory Rate 16 Respiratory Pattern Normal Blood Pressure 153/79 H Blood Pressure Mean 103 Blood Pressure Source Monitor Blood Pressure Position Semi-Fowlers Blood Pressure Location Right Arm Pulse Ox 98 Oxygen Delivery Method Room Air Weight Weight: 74.843 kg Body Mass Index (BMI) 27.4 Results Lab / Micro Data Result Diagrams: 02/24/22 08:00 02/24/22 08:00 Labs: Laboratory Results - last 24 hr 03/01/22 07:45: POC PT 12.6, INR 1.0 03/01/22 07:45: POC Glucose 274 H
--- NOTE | 2022-03-01 09:04 | PCM.DC ---
Discharge Instructions Diet Discharge Diet: No restrictions Dressing / Incision Call your doctor if your incision/area has: Continuous Slow Oozing, Increased Pain/ Swelling, Increased Redness and Foul Smelling Discharge Call your doctor if you observe: Fever of 101 or Higher, Numbness or Tingling, Shortness of breath, Dizziness, Calf discomfort and Uncontrolled pain Follow Up Care Please Follow Up With: Jovani Tamayo MD Test Results: Test results from this visit will be discussed in further detail at your follow-up appointment, if applicable. Discharge Plan Admission Primary Reason for Your Visit: CATRACHO Attending Provider: Jovani Tamayo Primary Care Provider: Karson Ko Instructions Patient Instructions: CATRACHO Home Recovery Discharge Orders/Prescriptions Prescriptions: New ciprofloxacin HCl [Cipro] 500 mg tablet 500 mg PO BID Qty: 10 RF: 0 Continued glimepiride 4 MG tablet 4 mg PO BID RF: 0 multivitamin 1 EACH tablet 1 ea PO DAILY RF: 0 losartan 50 MG tablet 50 mg PO DAILY RF: 0 atorvastatin 40 MG tablet 40 mg PO DAILY RF: 0 metformin 500 MG tablet extended release 24 hr 1,000 mg PO BID RF: 0 lbsabfpl-gnjz-emq4-C-aguilar-bosw 1 EACH tablet 1 ea PO BID RF: 0 atenolol 25 mg Tablet 25 mg PO DAILY RF: 0 flecainide 100 mg Tablet 100 mg PO Q12H RF: 0 finasteride 5 mg Tablet 5 mg PO DAILY RF: 0 Held warfarin 5 mg Tablet 5 mg PO SUMOWEFRSA RF: 0 Hold Instructions: Resume on 03/10/22. warfarin 5 mg Tablet 7 mg PO TUTH RF: 0 Hold Instructions: Resume on 03/10/22. Referrals / Follow Up: Jovani Tamayo MD [STAFF PHYSICIAN] - Karson Ko DO [Primary Care Provider] - Disposition Disposition (needs filled in before D/C Order can be placed): Home, Self Care
--- NOTE | 2022-03-01 09:37 | OP.PCM_ITS ---
Report of Operation Date of Procedure: 03/01/22 Pre-Operative Diagnosis: bph with obstruction Post-Operative Diagnosis: same Surgery/Procedure Performed:: TURP Description of Surgical Findings:: In the preoperative setting I discussed with the patient how the surgery would be done with expect afterwards. We discussed how a prostate resection is done and we discussed the risk of the surgery including, bleeding, infection, retrograde ejaculation, changes with ejaculation or intercourse,. We discussed the possibility that the resection of the prostate may not alleviate his urinary symptoms. We discussed the small risk of developing scar tissue along the urethral channel and strictures. We also discussed the chance of the prostate could grow back and he may need further surgery or treatment in the future for prostate problems. Patient was taken back to the operating room, timeout procedure was performed, he was identified and marked and placed on the operating room table. He underwent general anesthesia. He was placed in dorsolithotomy position. Penis and testicles were prepped and draped in usual sterile fashion. Went into the bladder using the visual obturator with a resectoscope. Once inside the bladder identified the right and left ureteral orifice. I then identified the prostate and the anatomy of the prostate. I marked out the area of the sphincter and the verumontanum was identified. I then proceeded with the prostate resection first resected the median lobe. And then resected the right lobe of the prostate. Then to resect the left lobe of the prostate. I then resected the apical tissue of the prostate. This was a complete resection of all obstructive tissue to improve voiding and relieve obstruction. I then made sure that there was no injury to the sphincter or the verumontanum was still intact. At the end of the resection all the chips were Ellik out of the bladder. I then identified the left and right ureteral orifice and these were confirmed to be in good position and effluxing and not injured. The resectoscope was removed, a 22 Irish catheter was placed into the bladder on continuous irrigation. And the urine was fairly light pink color and draining normally. He was taken back to the PACU in good condition. CPT 10816 Surgeon: levi Type of Anesthesia: General Admit VTE Documentation VTE Present on Admission: No VTE Mechan Device Prophylaxis: SCD's VTE Pharm Prophylaxis ordered?: No
[2022-03-01 11:00] LABS: Bedside Glucose 237 mg/dL (74-106)
[2022-03-01] MEDS: Ciprofloxacin 500 MG Tablet PO ×2 (14:10→21:09)
[2022-03-01] MEDS: Glimepiride 4 MG Tablet PO (17:22)
[2022-03-01] MEDS: metFORMIN HCl 500 MG Tablet 1000 MG PO (17:22)
[2022-03-01 17:31] LABS: Bedside Glucose 200 mg/dL (74-106)
[2022-03-01] MEDS: Flecainide 100 MG Tablet PO (21:08)
[2022-03-01] MEDS: Acetaminophen 500 MG Tablet PO (23:24)
[2022-03-02 04:00] VITALS: BP 111/75; PULSE 64; RESP 16; TEMP 37.2; O2SAT 96
[2022-03-02 07:46] VITALS: BP 133/74; PULSE 65; RESP 16; TEMP 36.6; O2SAT 95
--- NOTE | 2022-03-02 07:57 | PCM.PN.GU ---
Subjective Subjective urine clear d/c sainz dc home Objective Data Objective Data Vital Signs: Vital Signs Temp Pulse Resp BP Pulse Ox 97.8 F 65 16 133/74 H 95 03/02/22 07:46 03/02/22 07:46 03/02/22 07:46 03/02/22 07:46 03/02/22 07:46 Oxygen Delivery Method Room Air Weight: 74.843 kg Body Mass Index (BMI) 27.4 Intake & Output: Intake and Output for Last 24 Hours 02/28/22 03/01/22 03/02/22 23:59 23:59 23:59 Intake Total 1000 / 1000 Output Total 2120 / 3720 1600 / 1600 Balance -1120 / -2720 -1600 / -1600 Lab / Micro Data Result Diagrams: 02/24/22 08:00 02/24/22 08:00 Labs: Laboratory Results - last 24 hr 03/01/22 07:45: POC Glucose 274 H 03/01/22 10:56: POC Glucose 237 H 03/01/22 17:20: POC Glucose 200 H
[2022-03-02] MEDS: metFORMIN HCl 500 MG Tablet 1000 MG PO (08:21)
[2022-03-02] MEDS: Atenolol 25 MG Tablet PO (08:21)
[2022-03-02] MEDS: Acetaminophen 500 MG Tablet PO (08:22)
[2022-03-02] MEDS: Atorvastatin Calcium 40 MG Tablet PO (08:22)
[2022-03-02] MEDS: Losartan Potassium 50 MG Tablet PO (08:22)
[2022-03-02] MEDS: Glimepiride 4 MG Tablet PO (08:22)
[2022-03-02] MEDS: Flecainide 100 MG Tablet PO (08:22)
[2022-03-02] MEDS: Ciprofloxacin 500 MG Tablet PO (10:51)
[2022-03-02 11:04] VITALS: BP 132/74; PULSE 58; RESP 16; TEMP 36.7; O2SAT 96
== END 2022-03-02 11:29 | disposition home or self-care (01) ==
LOC: SDC 11:10 → MS3 11:10
PROVIDERS: Anesthesiology; Admitting Provider Urology; PCP Preventive Medicine Occupational Medicine; Referring Provider Urology; Visit Provider Urology
PROC: (CPT 52601; principal; 2022-03-01 09:15)
DX: N40.1 Benign prostatic hyperplasia with lower urinary tract symptoms (principal); I48.91 Unspecified atrial fibrillation; E11.9 Type 2 diabetes mellitus without complications; I10 Essential (primary) hypertension; N13.8 Other obstructive and reflux uropathy; E78.00 Pure hypercholesterolemia, unspecified; Z79.84 Long term (current) use of oral hypoglycemic drugs; Z87.891 Personal history of nicotine dependence; Z79.01 Long term (current) use of anticoagulants; Z79.899 Other long term (current) drug therapy; Z86.73 Personal history of transient ischemic attack (TIA), and cerebral infarction without residual deficits
CPT/HCPCS: 52601; 00914; 36415; 36416; 80048; 82962; 83036; 85027; 85610; 88305; 93005; 99218; J7120; C1769; G0378; J2405

== ENCOUNTER → 2022-03-16 | Outpatient (CLI) | payer MEDICARE, OTHER, SELFPAY | END | disposition home or self-care (01) | PROVIDERS: PCP Preventive Medicine Occupational Medicine; Visit Provider Urology | DX: R31.0 Gross hematuria (principal) | CPT/HCPCS: 87086 ==

== ENCOUNTER 2022-04-28 05:57 | Emergency (ER) | payer MEDICARE, OTHER, SELFPAY ==
[2022-04-28 05:58] VITALS: BP 189/98; PULSE 66; RESP 16; TEMP 35.6; O2SAT 98; BMI 27.3
[2022-04-28 06:27] LABS: Mucous, Urine 0 SEEN /hpf (<or=2+); Squamous Epithelial Cells - UA 0 SEEN /hpf (0-5); White Blood Cells 0 SEEN /hpf (0-5)
[2022-04-28 06:43] LABS: Color, Urine Red (Yellow); Glucose, Dipstick NEGATIVE (Normal); Ketone-Dipstick Negative (Negative); Leukocyte Esterase-Dipstick Negative /ul (Negative); Nitrite-Dipstick Negative (Negative); Occult Blood-Urine 250 /ul (Negative); Protein-Dipstick 500 mg/dl (Negative); Specific Gravity, Urine 1.015 (1.002-1.030); Urine Bilirubin Dipstick Negative (Negative); Urine Clarity Turbid (Clear); Urine Urobilinogen Normal (Normal); Urine pH 6.5 (5.0 - 8.0)
--- NOTE | 2022-04-28 06:43 | EDS_ITS ---
HPI History of Present Illness Chief Complaint: Complaint Informant: patient Onset/Context/Timing Onset: Yesterday Context: Gradual Onset Timing: Continuous Quality: Pressure Location: Suprapubic area Worsened by: Nothing Relieved by: Nothing Narrative Narrative: Patient presents with hematuria that began last evening. Patient states it is gradually getting worse. Patient states today it is bright red blood. Patient states he is having difficulty urinating. Patient admits to some pressure in the suprapubic area. Patient states nothing makes it better nothing makes it worse. Patient denies any fevers or chills. Patient denies any pain with urination. Patient denies any back or flank pain. Patient denies any nausea or vomiting. Patient states he had a TURP approximately 2 months ago. [facility] Medical History Back pain Bradycardia Cardiology follow-up encounter Diabetes Dietary restriction Former smoker Heartburn High cholesterol History of atrial fibrillation History of echocardiogram History of irregular heartbeat History of lipoma History of stress test History of ulceration Hypertension Migraine headache Personal history of retained foreign body fully removed Prostate disease TIA (transient ischemic attack) Wears glasses Home Medications glimepiride 4 mg tablet 4 mg PO BID 11/03/16 [History Last Taken Unknown] atorvastatin 40 mg tablet 40 mg PO DAILY 08/29/19 [History Last Taken 03/01/22] glucosamine 750 [id number] no1 644 mg-C 30 mg-aguilar 1 mg tablet 1 ea PO BID 08/29/19 [History Last Taken Unknown] losartan 50 mg tablet 50 mg PO DAILY 08/29/19 [History Last Taken 03/01/22] multivitamin 1 ea PO DAILY 08/29/19 [History Last Taken Unknown] atenolol 25 mg tablet 25 mg PO DAILY 02/22/22 [History Last Taken 03/01/22] finasteride 5 mg tablet 5 mg PO DAILY 02/22/22 [History Last Taken Unknown] flecainide 100 mg tablet 100 mg PO Q12H 02/22/22 [History Last Taken 03/01/22] warfarin 5 mg tablet 5 mg PO SUMOWEFRSA 02/22/22 [History Last Taken 02/20/22] warfarin 5 mg tablet 7 mg PO TUTH 02/22/22 [History Last Taken 02/20/22] metformin 500 mg tablet 1,000 mg PO BID 03/01/22 [History Last Taken Unknown] cinnamon bark 500 mg capsule (Cinnamon) 500 mg PO BID 04/28/22 [History Last Taken Unknown] fluorouracil 0.5 % topical cream 1 applic topical BID 04/28/22 [History Last Taken Unknown] mupirocin 2 % topical ointment 1 applic topical TID 04/28/22 [History Last Taken Unknown] Allergy/AdvReac Type Severity Reaction Status Date / Time adhesive tape Allergy Rash Verified 04/28/22 05:58 Penicillins Allergy fever Verified 04/28/22 05:58 cyclobenzaprine AdvReac tachycardia Verified 04/28/22 05:58 [From Flexeril] diaphoresis Surgical History History of transurethral resection of prostate Hx of left knee surgery Social History Smoking Status: Former smoker ROS ROS ED Constitutional Constitutional ED: Denies chills or fever(s) Eyes Eyes: Denies blurry vision or change in vision ENT ENT ED: Denies rhinorrhea or sore throat Cardiovascular Cardiovascular: Denies chest pain or palpitations Respiratory/Chest Respiratory/Chest: Denies cough or dyspnea Gastrointestinal Gastrointestinal: Denies nausea or vomiting Genitourinary Genitourinary ED: Reports hematuria; Denies dysuria Musculoskeletal Musculoskeletal: Denies back pain or neck pain Integumentary Denies abscess or rash Neurologic Neurologic: Denies headache(s) or weakness Allergic/Immunologic Allergic/Immunologic ED: Denies mouth swelling or urticaria EXAM Physical Exam Const Vital Signs: 04/28/22 05:58 Temperature 96.1 F L Temperature Source Temporal Pulse Rate 66 Respiratory Rate 16 Blood Pressure 189/98 H Blood Pressure Mean 128 Pulse Ox 98 Oxygen Delivery Method Room Air Positive well nourished and well developed General Appearance ED: well developed and NAD HEENT Reports moist mucous membranes Neck supple and no JVD Resp normal respiratory effort and clear to auscultation bilaterally Cardio regular rate and regular rhythm GI normal to inspection, nondistended, normoactive bowel sounds and non-tender Palpation: soft Narrative: Vasquez catheter was placed. There is red bloody urine noted in the tube and bag. Patient feels better after Vasquez catheter was placed. Back/Spine no CVA tenderness Neuro oriented x3, CN's II-XII intact bilaterally and no sensory deficits noted Sensorium / Orientation: alert Motor Exam: strength 5/5 throughout Psych mental status grossly normal MDM MDM MDM Narrative Medical decision making narrative: Vasquez catheter was placed. Patient is feeling better on reevaluation. Urinalysis was obtained. There were greater than 100 red blood cells. There is no white blood cells noted. There are no epithelial cells noted. Patient was given a leg bag. Patient was instructed to avoid any heavy lifting. Patient was instructed to follow-up with his urologist in 3 to 5 days. Patient understood and was agreeable with the plan. All questions were answered. Lab Data Labs: Laboratory Results - last 24 hr 04/28/22 06:20 Urine Color Red Urine Clarity Turbid Urine pH 6.5 Ur Specific [place] 1.015 Urine Protein 500 H Urine Glucose (UA) NEGATIVE Urine Ketones Negative Urine Occult Blood 250 H Urine Nitrite Negative Urine Bilirubin Negative Urine Urobilinogen Normal Ur Leukocyte Esterase Negative Urine RBC > 100 SEEN Urine WBC 0 SEEN Ur Squamous Epith Cells 0 SEEN Amorphous Sediment 2+ Urine Bacteria 2+ Urine Mucus 0 SEEN Discharge Plan Triage Chief Complaint: Complaint ED Provider: Christopher Wolff Dx/Rx/DC Orders Clinical Impression: Hematuria Instructions: ED Hematuria Prescriptions: No Action glimepiride 4 MG tablet 4 mg PO BID multivitamin 1 EACH tablet 1 ea PO DAILY losartan 50 MG tablet 50 mg PO DAILY atorvastatin 40 MG tablet 40 mg PO DAILY mzuckipa-cvro-usf5-C-aguilar-bosw 1 EACH tablet 1 ea PO BID atenolol 25 mg Tablet 25 mg PO DAILY warfarin 5 mg Tablet 5 mg PO SUMOWEFRSA Hold Instructions: Resume on 03/10/22. warfarin 5 mg Tablet 7 mg PO TUTH Hold Instructions: Resume on 03/10/22. flecainide 100 mg Tablet 100 mg PO Q12H finasteride 5 mg Tablet 5 mg PO DAILY metformin 500 mg tablet 1,000 mg PO BID Rx Instructions: Metformin HCL fluorouracil 0.5 % Cream 1 applic TOPICAL BID mupirocin 2 % Ointment 1 applic TOPICAL TID cinnamon bark [Cinnamon] 500 mg Capsule 500 mg PO BID Primary Care Provider: Karson Ko Referrals: Jovani Taamyo MD [STAFF PHYSICIAN] - 3-5 Days Karson Ko DO [Primary Care Provider] - 5-7 Days Disposition Disposition: Home, Self Care
[2022-04-28 06:51] LABS: Amorphous Sediment 2+; Bacteria 2+ /hpf (None Seen); Red Blood Cells-Urine > 100 SEEN /hpf (0-5)
[2022-04-28 07:47] VITALS: BP 170/68; PULSE 80; RESP 18; O2SAT 99
== END 2022-04-28 07:49 | disposition home or self-care (01) ==
PROVIDERS: Emergency Provider Emergency Medicine; PCP Preventive Medicine Occupational Medicine; Visit Provider Emergency Medicine
DX: R31.9 Hematuria, unspecified (principal); E11.9 Type 2 diabetes mellitus without complications; E78.00 Pure hypercholesterolemia, unspecified; I10 Essential (primary) hypertension; Z87.891 Personal history of nicotine dependence; Z79.899 Other long term (current) drug therapy
CPT/HCPCS: 51702; 99283; 81001

== ENCOUNTER 2022-04-28 23:20 | Emergency (ER) | payer MEDICARE, OTHER, SELFPAY ==
[2022-04-28 23:22] VITALS: BP 165/95; PULSE 66; RESP 18; TEMP 36.7; O2SAT 98; BMI 27.6
--- NOTE | 2022-04-28 23:31 | EDS_ITS ---
HPI History of Present Illness Chief Complaint: Complaint Detail of Chief Complaint: Vasquez catheter problem Informant: patient Narrative Narrative: Patient presents to the emergency department with complaint of hematuria and Vasquez catheter problem. Patient states that he was seen in the emergency department last evening with urinary retention and hematuria. Patient had a Vasquez catheter placed. Urinalysis was obtained and no antibiotics were started. Patient denies fever. Patient denies nausea or vomiting. Patient states that he had a TURP approximately 8 weeks ago. Patient states that 2 hours ago the Vasquez catheter stopped draining and thinks there may be a clot blocking the Vasquez catheter. Prior similar symptoms: No PFSH PFSH Medical History Back pain Bradycardia Cardiology follow-up encounter Diabetes Dietary restriction Former smoker Heartburn High cholesterol History of atrial fibrillation History of echocardiogram History of irregular heartbeat History of lipoma History of stress test History of ulceration Hypertension Migraine headache Personal history of retained foreign body fully removed Prostate disease TIA (transient ischemic attack) Wears glasses Home Medications glimepiride 4 mg tablet 4 mg PO BID 11/03/16 [History Last Taken Unknown] atorvastatin 40 mg tablet 40 mg PO DAILY 08/29/19 [History Last Taken 03/01/22] glucosamine 750 [id number] no1 644 mg-C 30 mg-aguilar 1 mg tablet 1 ea PO BID 08/29/19 [History Last Taken Unknown] losartan 50 mg tablet 50 mg PO DAILY 08/29/19 [History Last Taken 03/01/22] multivitamin 1 ea PO DAILY 08/29/19 [History Last Taken Unknown] atenolol 25 mg tablet 25 mg PO DAILY 02/22/22 [History Last Taken 03/01/22] finasteride 5 mg tablet 5 mg PO DAILY 02/22/22 [History Last Taken Unknown] flecainide 100 mg tablet 100 mg PO Q12H 02/22/22 [History Last Taken 03/01/22] warfarin 5 mg tablet 5 mg PO SUMOWEFRSA 02/22/22 [History Last Taken 02/20/22] warfarin 5 mg tablet 7 mg PO TUTH 02/22/22 [History Last Taken 02/20/22] metformin 500 mg tablet 1,000 mg PO BID 03/01/22 [History Last Taken Unknown] cinnamon bark 500 mg capsule (Cinnamon) 500 mg PO BID 04/28/22 [History Last Taken Unknown] fluorouracil 0.5 % topical cream 1 applic topical BID 04/28/22 [History Last Taken Unknown] mupirocin 2 % topical ointment 1 applic topical TID 04/28/22 [History Last Taken Unknown] cephalexin 500 mg capsule 500 mg PO Q6 #28 CAPSULES 04/29/22 [Rx Last Taken U nknown] Allergy/AdvReac Type Severity Reaction Status Date / Time adhesive tape Allergy Rash Verified 04/28/22 23:21 Penicillins Allergy fever Verified 04/28/22 23:21 cyclobenzaprine AdvReac tachycardia Verified 04/28/22 23:21 [From Flexeril] diaphoresis Surgical History History of transurethral resection of prostate Hx of left knee surgery Social History Smoking Status: Former smoker ROS ROS ED Review of Systems ROS Unobtainable: other Constitutional Constitutional ED: Reports lethargy; Denies chills, fever(s), sweats or weight loss Eyes Eyes: Denies blurry vision, change in vision or diplopia ENT ENT ED: Denies rhinorrhea or sore throat Cardiovascular Cardiovascular: Reports chest pain and racing heartbeat; Denies orthopnea Respiratory/Chest Respiratory/Chest: Reports dyspnea and dyspnea on exertion; Denies cough, orthopnea or sputum Gastrointestinal Gastrointestinal: Denies abdominal pain, diarrhea, nausea or vomiting Genitourinary Genitourinary ED: Reports other Details: Vasquez catheter not draining/urinary retention/hematuria ; Denies dysuria, hematuria or urinary frequency Musculoskeletal Musculoskeletal: Denies arthralgias, back pain, myalgias or neck pain Integumentary Denies abscess, Abrasions or rash Neurologic Neurologic: Denies headache(s) or weakness Psychiatric Psychiatric: Denies anxiety, depression or suicidal thoughts Endocrine Endocrinology: Denies polydipsia, polyphagia or polyuria Hematologic/Lymphatic Hematologic/Lymphatic: Denies easy bleeding, easy bruising or lymphadenopathy Allergic/Immunologic Allergic/Immunologic ED: Denies mouth swelling, tongue swelling or urticaria EXAM Physical Exam Const Vital Signs: 04/28/22 23:22 Temperature 98.0 F Temperature Source Oral Pulse Rate 66 Respiratory Rate 18 Blood Pressure 165/95 H Blood Pressure Mean 118 Pulse Ox 98 Oxygen Delivery Method Room Air Positive well nourished and well developed General Appearance ED: well developed and NAD HEENT Reports TM's clear and moist mucous membranes normocephalic and atraumatic; Negative for trauma or tenderness Tympanic Membrane ED: Yes TM's clear Eyes PERRL and EOMs intact bilaterally General Eye ED: Negative for pale conjunctiva or scleral icterus Neck no lymphadenopathy, supple and no JVD General: Negative for tenderness Chest Wall inspection of chest normal and palpation of chest normal Chest: Negative for tenderness Resp normal respiratory effort and clear to auscultation bilaterally Effort and Inspection: Negative for respiratory distress or pain with movement Auscultation: Negative for rhonchi, wheezes or diminished lung sounds Cardio regular rate, regular rhythm, S1 normal heart sound, S2 normal heart sound and no murmurs Peripheral Pulses: pulses 2+ throughout GI normal to inspection, nondistended, normoactive bowel sounds, soft to palpation, non-tender, non-distended and no masses Narrative: Patient has an indwelling Vasquez catheter with no urine in the bag and there was a small clot noted in the bag. Patient has some mild suprapubic tenderness on palpation. No rebound, rigidity, or cranial signs. Back/Spine no CVA tenderness and no thoracic nor lumbar tenderness Extremity normal to inspection General Extremety ED: Negative for edema General Extremity: Negative for edema Neuro oriented x3, CN's II-XII intact bilaterally, no sensory deficits noted and gait normal Sensorium / Orientation: awake, alert, oriented to person, oriented to place and oriented to time Motor Exam: strength 5/5 throughout and strength abnormal Psych mental status grossly normal Skin no rashes or lesions noted and no wounds MDM MDM MDM Narrative Medical decision making narrative: I will have nursing staff irrigate the Vasquez catheter to see if we can relieve the obstruction. If the catheter does not drain will need to be replaced. I will send off a urine culture. I will empirically start patient on antibiotics given the hematuria and he did have +2 bacteria last evening on his urine. We were able to successfully irrigate the catheter and he is draining now. Patient was started on Bactrim. Patient to follow-up with his urologist. Discharge Plan Triage Chief Complaint: Complaint ED Provider: Renaldo Neumann Dx/Rx/DC Orders Clinical Impression: Acute urinary retention, Hematuria Instructions: ED Hematuria, ED Urinary Retention, Male Prescriptions: New cephalexin [cephalexin] 500 mg capsule 500 mg PO Q6 Qty: 28 0RF No Action glimepiride 4 MG tablet 4 mg PO BID multivitamin 1 EACH tablet 1 ea PO DAILY losartan 50 MG tablet 50 mg PO DAILY atorvastatin 40 MG tablet 40 mg PO DAILY [id number] 1 EACH tablet 1 ea PO BID atenolol 25 mg Tablet 25 mg PO DAILY warfarin 5 mg Tablet 5 mg PO SUMOWEFRSA Hold Instructions: Resume on 03/10/22. warfarin 5 mg Tablet 7 mg PO TUTH Hold Instructions: Resume on 03/10/22. flecainide 100 mg Tablet 100 mg PO Q12H finasteride 5 mg Tablet 5 mg PO DAILY metformin 500 mg tablet 1,000 mg PO BID Rx Instructions: Metformin HCL fluorouracil 0.5 % Cream 1 applic TOPICAL BID mupirocin 2 % Ointment 1 applic TOPICAL TID cinnamon bark [Cinnamon] 500 mg Capsule 500 mg PO BID Primary Care Provider: Karson Ko Referrals: Jovani Tamayo MD [STAFF PHYSICIAN] - 3-5 Days Karson Ko DO [Primary Care Provider] - Disposition Disposition: Home, Self Care
[2022-04-29] MEDS: Cephalexin 250 MG Capsule 500 MG PO (00:18)
== END 2022-04-29 00:31 | disposition home or self-care (01) ==
LOC: ED 04-29 00:19
PROVIDERS: Emergency Provider Emergency Medicine; PCP Preventive Medicine Occupational Medicine; Visit Provider Emergency Medicine
DX: R31.9 Hematuria, unspecified (principal); T83.011A Breakdown (mechanical) of indwelling urethral catheter, initial encounter; E11.9 Type 2 diabetes mellitus without complications; I10 Essential (primary) hypertension; E78.00 Pure hypercholesterolemia, unspecified; R33.9 Retention of urine, unspecified; Z87.891 Personal history of nicotine dependence; Z79.899 Other long term (current) drug therapy; Z79.84 Long term (current) use of oral hypoglycemic drugs
CPT/HCPCS: 51702; 81001; 87086; 99283

== ENCOUNTER 2022-07-08 23:01 | Emergency (ER) | payer MEDICARE, OTHER, SELFPAY ==
[2022-07-08 23:03] VITALS: BP 198/120; PULSE 65; RESP 17; TEMP 35.8; O2SAT 98; BMI 26.1
--- NOTE | 2022-07-08 23:20 | RAD_ITS ---
STUDY: X-RAY CHEST REASON FOR EXAM: Male, 67 years old. Chest pain TECHNIQUE: Single AP portable view of the chest. COMPARISON: None. FINDINGS: There is an indwelling color television console monitor device overlying the left chest. The lungs are clear and expanded. There is no demonstrated pleural abnormality. Normal size heart. Normal mediastinum and adama. Normal visualized pulmonary arteries. Normal visualized aortic arch and descending thoracic aorta. There are diffuse degenerative changes of the visualized thoracic spine. There is degenerative osteoarthritis of the bilateral shoulders. There is no demonstrated abnormality of the visualized soft tissue structures of the upper abdomen. RAD/Chest 1 View (Portable) IMPRESSION: No demonstrated acute cardiopulmonary process. Electronically Signed: Larissa Cardoso MD at 0:11 EDT ,
--- NOTE | 2022-07-08 23:20 | EKG12_ITS ---
Test Reason : CP Blood Pressure : / mmHG Vent. Rate : 064 BPM Atrial Rate : 064 BPM P-R Int : 282 ms QRS Dur : 126 ms QT Int : 432 ms P-R-T Axes : 000 -03 006 degrees QTc Int : 445 ms Sinus rhythm with 1st degree A-V block Non-specific intra-ventricular conduction block Abnormal ECG Confirmed by GALI CHACKO, NOEMI ([id number]), features editor YOVANY CARRILOL ([id number]) on 07/11/2022 12:57:24 PM Referred By: TSERING Confirmed By:NOEMI TALBERT MD
[2022-07-08 23:26] VITALS: BP 157/80; PULSE 67
[2022-07-08 23:28] VITALS: BP 158/97; PULSE 66
[2022-07-08] MEDS: Ondansetron 4 MG/2 ML Vial IV (23:38)
[2022-07-08] MEDS: Morphine 4 MG/ML Syringe IV (23:38)
[2022-07-08 23:51] LABS: Absolute Lymphocyte Count 2.13 X10^3/uL (0.83-4.51); Absolute Neutrophil Count 6.4 X10^3/uL (2.0-7.7); Basophil# 0.04 X10^3/uL; Basophil% 0.4 % (0-1); Eosinophil# 0.24 X10^3/uL; Eosinophils% 2.5 % (0-5); Hematocrit 40.1 % (40-54); Hemoglobin 12.7 g/dL (13.0-16.5); Lymphocyte # 2.13 X10^3/ul (0.83-4.51); Lymphocyte % 21.8 % (19-41); Mean Corp Hgb Conc 31.7 g/dL (32-36); Mean Corpuscular Hgb 28.3 pg (27.0-32.0); Mean Corpuscular Volume 89.5 fL (80-94); Mean Platelet Vol. 9.3 fl (6.2-12.0); Monocyte# 0.95 X10^3/uL; Monocyte% 9.7 % (0-10); NRBC Flagged by Analyzer 0 % (0-5); Neutrophil # 6.39 X10^3/uL (2.7-7.7); Neutrophil % 65.4 % (47-70); Platelet Count 318 K/mm3 (150-450); RBC Distribution Width CV 13.2 % (11.6-14.6); RBC Distribution Width SD 42.8 fl (35.1-43.9); Red Blood Count 4.48 M/mm3 (4.6-6.2); White Blood Count 9.8 K/mm3 (4.4-11.0)
--- NOTE | 2022-07-09 00:01 | EDS_ITS ---
HPI History of Present Illness Chief Complaint: Other, Pain/Inj Narrative Narrative: This is a 67-year-old male presenting with a chief complaint of acute onset bilateral shoulder pain and bilateral inguinal pain. This started yesterday and he states he was just sitting around. He states he has not done anything exertional except for mow the grass using a riding lawnmower. He denies any trauma. He states that anytime he moves his shoulders or his legs he has pain in these areas. He denies any trauma to these areas. He states when you push on either area it does not hurt. He has tried Tylenol without relief. This is a new problem for him. He does state that he has some tingling which goes down his left arm. He denies overt chest pain or chest pressure. He is not had a fever or cough. He denies constipation or diarrhea. [facility] Medical History Back pain Bradycardia Cardiology follow-up encounter Diabetes Dietary restriction Former smoker Heartburn High cholesterol History of atrial fibrillation History of echocardiogram History of irregular heartbeat History of lipoma History of stress test History of ulceration Hypertension Migraine headache Personal history of retained foreign body fully removed Prostate disease TIA (transient ischemic attack) Wears glasses Home Medications glimepiride 4 mg tablet 4 mg PO BID 11/03/16 [History Last Taken Unknown] atorvastatin 40 mg tablet 40 mg PO DAILY 08/29/19 [History Last Taken 03/01/22] glucosamine 750 [id number] no1 644 mg-C 30 mg-aguilar 1 mg tablet 1 ea PO BID 08/29/19 [History Last Taken Unknown] losartan 50 mg tablet 50 mg PO DAILY 08/29/19 [History Last Taken 03/01/22] multivitamin 1 ea PO DAILY 08/29/19 [History Last Taken Unknown] atenolol 25 mg tablet 25 mg PO DAILY 02/22/22 [History Last Taken 03/01/22] finasteride 5 mg tablet 5 mg PO DAILY 02/22/22 [History Last Taken Unknown] flecainide 100 mg tablet 100 mg PO Q12H 02/22/22 [History Last Taken 03/01/22] warfarin 5 mg tablet 5 mg PO SUMOWEFRSA 02/22/22 [History Last Taken 02/20/22] warfarin 5 mg tablet 7 mg PO TUTH 02/22/22 [History Last Taken 02/20/22] metformin 500 mg tablet 1,000 mg PO BID 03/01/22 [History Last Taken Unknown] cinnamon bark 500 mg capsule (Cinnamon) 500 mg PO BID 04/28/22 [History Last Taken Unknown] fluorouracil 0.5 % topical cream 1 applic topical BID 04/28/22 [History Last Taken Unknown] Allergy/AdvReac Type Severity Reaction Status Date / Time adhesive tape Allergy Rash Verified 07/08/22 23:06 Penicillins Allergy fever Verified 07/08/22 23:06 cyclobenzaprine AdvReac tachycardia Verified 07/08/22 23:06 [From Flexeril] diaphoresis Surgical History History of transurethral resection of prostate Hx of left knee surgery Social History Smoking Status: Former smoker EXAM Physical Exam Const Vital Signs: 07/08/22 23:03 07/08/22 23:08 07/08/22 23:26 Temperature 96.5 F L Temperature Source Temporal Pulse Rate 65 67 Respiratory Rate 17 Respiratory Effort Normal Respiratory Pattern Normal Blood Pressure 198/120 H 157/80 H Blood Pressure Mean 146 105 Pulse Ox 98 Oxygen Delivery Method Room Air 07/08/22 23:28 Temperature Temperature Source Pulse Rate 66 Respiratory Rate Respiratory Effort Respiratory Pattern Blood Pressure 158/97 H Blood Pressure Mean 117 Pulse Ox Oxygen Delivery Method Positive well nourished General Appearance ED: NAD HEENT atraumatic Eyes PERRL and EOMs intact bilaterally Chest Wall inspection of chest normal and palpation of chest normal Resp normal respiratory effort and clear to auscultation bilaterally Auscultation: Negative for rales, rhonchi or wheezes Cardio regular rhythm GI normal to inspection, nondistended, normoactive bowel sounds, non-distended and no masses Back/Spine normal to inspection and no thoracic nor lumbar tenderness MDM MDM MDM Narrative Medical decision making narrative: Patient presenting with upper shoulder pain in the anterior portions of the shoulder. I am unable to reproduce this but he states it hurts when he moves. He is also complaining of bilateral inguinal pain. I cannot reproduce this either it only hurts when he moves them. He denies any trauma. He states he has a sedentary lifestyle. He is anticoagulated on Coumadin and his INR is therapeutic today at 2.9 so I do not suspect blood clots in any portion of this area. I do not suspect PE. His blood pressure was elevated at 198/120 when he got here and did have dissection on my list although the pain does not seem to connect on his body the lower abdominal/inguinal pain and the shoulder pain started at the same time. I did obtain blood work and his CBC and CMP are unremarkable with exception of a glucose of 269 without anion gap. He is sli ghtly dehydrated. His high-sensitivity troponin is 9. EKG on my interpretation shows normal sinus rhythm with a ventricular rate of 64 bpm with first-degree AV block. His initial chest x-ray showed no acute cardiopulmonary process on my interpretation the radiologist did agree. CTA of the chest abdomen pelvis was ultimately performed to rule out dissection although the blood pressures in his bilateral arms were symmetrical. The CTA of the chest abdomen pelvis did not show anything acute such as a PE or dissection. There is no pulmonary infiltrate. The abdomen pelvis portion of this shows mild/moderate constipation. The patient states that he is not having any constipation and that he takes metformin which gives him diarrhea. I explained to him again that that is what the CT shows. I do not believe he needs other further blood work or imaging. I counseled him that he should follow-up with his PCP to ensure resolution. It looks like his primary care provider provides him has provided him multiple prescriptions for oxycodone in the past and the last the time he was prescribed these was in March. Prior to that it seemed to be monthly from November to March. I do not believe he needs narcotics currently. Patient counseled on following up with his primary care provider and return precautions were discussed. Impression: 1. Bilateral shoulder pain 2. Bilateral inguinal pain 3. Constipation Lab Data Attestation: I reviewed the patient's lab results. Labs: Laboratory Results - last 24 hr 07/08/22 07/08/22 07/08/22 23:40 23:40 23:40 WBC 9.8 RBC 4.48 L Hgb 12.7 L Hct 40.1 MCV 89.5 MCH 28.3 MCHC 31.7 L RDW Std Deviation 42.8 RDW Coeff of Star 13.2 Plt Count 318 MPV 9.3 Immature Gran % (Auto) 0.200 Neut % (Auto) 65.4 Lymph % (Auto) 21.8 [place] % (Auto) 9.7 Eos % (Auto) 2.5 Baso % (Auto) 0.4 Absolute Neuts (auto) 6.4 Absolute Lymphs (auto) 2.13 Nucleated RBC % 0 PT 29.7 H INR 2.9 Sodium 141 Potassium 4.3 Chloride 105 Carbon Dioxide 28.0 Anion Gap 8 BUN 23 H Creatinine 0.99 Estim Creat Clear Calc 63.85 Est GFR (MDRD) Af Amer 98 Est GFR (MDRD) Non-Af 81 BUN/Creatinine Ratio 23.3 H Glucose 269 H Calcium 9.3 Troponin I High Sens 9 Radiography Diagnostic Testing: Clinical Impression(s) from Imaging Studies Chest X-Ray 07/08/22 23:20 IMPRESSION: No demonstrated acute cardiopulmonary process. Electronically Signed: Larissa Cardoso MD at 0:11 EDT Reading Location ID and State: [facility] / [place] Tel , Service support , Chest/Abdomen/Pelvis CTA 07/09/22 23:20 IMPRESSION: Thoracic and abdominal aorta: No aneurysmal dilatation or aortic dissection. Borderline to mild cardiac enlargement trace coronary calcification. No visualized acute focal infiltrate. Mild to moderate constipation. No appendicitis. No visualized hydronephrosis. Multilevel degenerative change of the thoracolumbar spine. Normal contrast-enhanced CT of the abdomen and pelvis. Electronically Signed: Larissa Cardoso MD at 0:59 EDT , Discharge Plan Triage Chief Complaint: Other, Pain/Inj Other Complaint: General Illness ED Provider: Hayden Newell Dx/Rx/DC Orders Prescriptions: No Action glimepiride 4 MG tablet 4 mg PO BID multivitamin 1 EACH tablet 1 ea PO DAILY losartan 50 MG tablet 50 mg PO DAILY atorvastatin 40 MG tablet 40 mg PO DAILY [id number] 1 EACH tablet 1 ea PO BID atenolol 25 mg Tablet 25 mg PO DAILY warfarin 5 mg Tablet 5 mg PO SUMOWEFRSA Hold Instructions: Resume on 03/10/22. warfarin 5 mg Tablet 7 mg PO TUTH Hold Instructions: Resume on 03/10/22. flecainide 100 mg Tablet 100 mg PO Q12H finasteride 5 mg Tablet 5 mg PO DAILY metformin 500 mg tablet 1,000 mg PO BID Rx Instructions: Metformin HCL fluorouracil 0.5 % Cream 1 applic TOPICAL BID cinnamon bark [Cinnamon] 500 mg Capsule 500 mg PO BID Primary Care Provider: Karson Ko Referrals: Karson Ko DO [Primary Care Provider] -
[2022-07-09 00:18] LABS: Anion Gap 8 (5-15); BUN 23 mg/dL (7-18); BUN/Creat Ratio 23.3 RATIO (10-20); Calcium,Total 9.3 mg/dL (8.5-10.1); Chloride 105 mmol/L (98-107); Creatinine, Serum 0.99 mg/dL (0.70-1.30); EST Glomerular Filtration Rate 81 mL/min (>60); Est Glom Filt Rate - Afr Amer 98 mL/min (>60); Estimated Creatinine Clearance 63.85 ml/min; Glucose 269 mg/dL (74-106); Potassium 4.3 mmol/L (3.5-5.1); Sodium Level 141 mmol/L (136-145); Troponin-I HS (w/2H Reflex) 9 pg/mL (3.0-78.0)
[2022-07-09 00:20] LABS: International Normalized Ratio 2.9; Prothrombin Time (Protime)PT. 29.7 SECONDS (11.7-14.9)
[2022-07-09 01:45] LABS: Reflex Troponin-HS? (from REC) Y
[2022-07-09 02:11] VITALS: BP 155/80; PULSE 64; RESP 16; O2SAT 94
--- NOTE | 2022-07-09 23:20 | CT_ITS ---
INDICATION: chest pain/ abdominal pin EXAMINATION: CTA CHEST, ABDOMEN AND PELVIS WITH CONTRAST - TECHNIQUE: A CTA of the chest, abdomen, and pelvis is obtained with sagittal and coronal reconstructed MIP views. Three-dimensional surface rendered sequence of the thoracic and abdominal aorta was obtained. A radiation dose optimization technique was used for this scan. 100 mL mL of Isovue-370. Oral contrast: None. COMPARISON: Chest x-ray July 08, 2022, September 15, 2019 CT scan abdomen and pelvis FINDINGS: CT CHEST: THORACIC AND ABDOMINAL AORTA: The ascending thoracic aorta measures 3.2 x 3.0 cm. It is minimally calcified mildly tortuous. The aorta at the level of the celiac shows no plaque formation. It measures 1.77 x 1.85 cm. There is minimal plaque formation of the infrarenal aorta. The aorta at the bifurcation measures 1.4 cm. There is a partially calcified takeoff of the bilateral common iliac arteries and bilateral external iliac arteries. There is good contrast enhancement of the trifurcation bilaterally and minimal calcification of the common femoral arteries. There is a patent appearance of the bilateral internal iliac arteries. ABDOMINAL AORTA: No aneurysm or dissection. There is minimal atheromatous disease. The iliac arteries are patent. LUNGS: There is no focal consolidation pleural effusion or pulmonary edema. MEDIASTINUM: The thyroid gland is normal. No mediastinal or hilar adenopathy. HEART: There is mild cardiac enlargement. There is trace coronary calcification. CT ABDOMEN AND PELVIS: LIVER: The liver enhances homogeneously. No masses identified. GALLBLADDER: The CBD is normal. Normal gallbladder. SPLEEN: Normal. PANCREAS: No masses or inflammation. ADRENAL GLANDS: Normal. KIDNEYS AND URETERS: The kidneys both enhance appropriately. There are normal size and shape. No hydronephrosis or nephrolithiasis. No renal masses or cysts. STOMACH: There is a minimal hiatal hernia. The stomach is partially distended with food or fluid contents. There is a small lymph node posterior to the rosa maria hepatis. This measures 7.7 mm stable since prior study. SMALL BOWEL: No abnormal distention of the small bowel. MESENTERY: There are a few 5 mm stable mesenteric lymph nodes in the left of midline. COLON: There is mild to moderate stool within the colon. The colon otherwise is normal. There is a large fatty ileocecal valve. APPENDIX: The appendix is visualized and normal. IVC: Normal. RETROPERITONEUM: No retroperitoneal lymphadenopathy. PELVIC STRUCTURES: Normal bladder. The prostate appears normal. SOFT TISSUES ABDOMEN: There is a left-sided fatty inguinal hernia. There is a minimal fatty umbilical hernia. SOFT TISSUE CHEST: The extrathoracic soft tissues are normal. BONES: There is visualized degenerative change in the bilateral acromioclavicular joints and shoulder joints. There is multilevel bridging osteophytosis throughout the thoracolumbar spine. There is no apparent acute loss of height or alignment. The level of L4-L5 there is a broad disc bulge moderate to severe neural foraminal narrowing moderate to severe Central stenosis facet arthropathy. L4-L5 there is a broad disc osteophyte moderate neural foraminal narrowing moderate central stenosis. At L5-S1 there is a broad disc bulge, moderate neural foraminal narrowing minimal central stenosis. There is degenerative change of the SI joints. There is enthesopathy at the iliac crest. There is degenerative change in the bilateral hip joints. CT/CTA Chst, Abd, Pel W and/or WO IMPRESSION: Thoracic and abdominal aorta: No aneurysmal dilatation or aortic dissection. Borderline to mild cardiac enlargement trace coronary calcification. No visualized acute focal infiltrate. Mild to moderate constipation. No appendicitis. No visualized hydronephrosis. Multilevel degenerative change of the thoracolumbar spine. Normal contrast-enhanced CT of the abdomen and pelvis. Electronically Signed: Larissa Cardoso MD at 0:59 EDT ,
== END 2022-07-09 02:14 | disposition home or self-care (01) ==
PROVIDERS: Emergency Provider Student in an Organized Health Care Education/Training Program; PCP Preventive Medicine Occupational Medicine; Visit Provider Student in an Organized Health Care Education/Training Program
DX: M25.512 Pain in left shoulder (principal); E11.9 Type 2 diabetes mellitus without complications; M25.511 Pain in right shoulder; K59.00 Constipation, unspecified; E86.0 Dehydration; I10 Essential (primary) hypertension; E78.00 Pure hypercholesterolemia, unspecified; I44.0 Atrioventricular block, first degree; R10.2 Pelvic and perineal pain; Z87.891 Personal history of nicotine dependence; Z79.84 Long term (current) use of oral hypoglycemic drugs; Z79.01 Long term (current) use of anticoagulants; Z79.899 Other long term (current) drug therapy
CPT/HCPCS: 71045; 71275; 74174; 80048; 84484; 85025; 85610; 93005; 96374; 96375; 99283; Q9967; A4216; J2405

== ENCOUNTER → 2022-07-17 | Outpatient (CLI) | payer MEDICARE, OTHER, SELFPAY ==
[2022-07-17 12:16] LABS: PSA,Total - Annual Screen 2.24 ng/mL (0.00-4.00)
== END | disposition home or self-care (01) ==
LOC: LAB 10:20
PROVIDERS: PCP Preventive Medicine Occupational Medicine; Referring Provider Urology; Visit Provider Urology
DX: Z12.5 Encounter for screening for malignant neoplasm of prostate (principal)
CPT/HCPCS: 36415; 84153; G0103

== ENCOUNTER → 2022-11-21 | Outpatient (CLI) | payer MEDICARE, OTHER, SELFPAY ==
--- NOTE | 2022-11-21 10:17 | RAD_ITS ---
STUDY: X-RAY - RIGHT SHOULDER REASON FOR EXAM: Male, 67 years old. PAIN TECHNIQUE: 4 view(s) of the shoulder. COMPARISON: None. FINDINGS: Narrowed glenohumeral articulation and spurring of the inferior glenoid process. Spurring of the acromioclavicular joint. Normal acromion. Normal humeral head and visualized proximal humerus. The soft tissue structures are unremarkable. Normal visualized pulmonary apex. RAD/Shoulder min 2 Views IMPRESSION: Degenerative changes. No acute fracture or other significant bony pathology. Electronically Signed: Trey Tomlinson MD at 20:04 EST ,
--- NOTE | 2022-11-21 10:20 | RAD_ITS ---
STUDY: X-RAY - PELVIS REASON FOR EXAM: Male, 67 years old. PAIN TECHNIQUE: One view of the pelvis was obtained. COMPARISON: None. FINDINGS: There is a non-specific bowel gas pattern. Normal visualized soft tissue structures. Normal bilateral iliac wings, sacroiliac joints and visualized sacrum. Normal visualized bilateral superior and inferior pubic rami. Normal pubic symphysis. Normal ischial tuberosities. There is narrowing of the hip joints bilaterally with acetabular spurring more severe on the left. . RAD/Pelvis 1 or 2 Views IMPRESSION: Degenerative osteoarthritic changes of the hips more severe on the left Electronically Signed: Trey Tomlinson MD at 20:19 EST ,
[2022-11-21 12:31] LABS: Absolute Lymphocyte Count 1.97 X10^3/uL (0.83-4.51); Absolute Neutrophil Count 8.7 X10^3/uL (2.0-7.7); Basophil# 0.04 X10^3/uL; Basophil% 0.3 % (0-1); Eosinophil# 0.28 X10^3/uL; Eosinophils% 2.4 % (0-5); Hematocrit 46.2 % (40-54); Hemoglobin 14.4 g/dL (13.0-16.5); Lymphocyte # 1.97 X10^3/ul (0.83-4.51); Lymphocyte % 16.6 % (19-41); Mean Corp Hgb Conc 31.2 g/dL (32-36); Mean Corpuscular Hgb 28.3 pg (27.0-32.0); Mean Corpuscular Volume 90.9 fL (80-94); Mean Platelet Vol. 10.1 fl (6.2-12.0); Monocyte# 0.87 X10^3/uL; Monocyte% 7.3 % (0-10); NRBC Flagged by Analyzer 0 % (0-5); Neutrophil # 8.65 X10^3/uL (2.7-7.7); Neutrophil % 73.1 % (47-70); Platelet Count 288 K/mm3 (150-450); RBC Distribution Width CV 14.6 % (11.6-14.6); RBC Distribution Width SD 49.1 fl (35.1-43.9); Red Blood Count 5.08 M/mm3 (4.6-6.2); White Blood Count 11.8 K/mm3 (4.4-11.0)
[2022-11-21 12:41] LABS: Erythrocyte Sedimentation Rate 7 mm/hr (0-20)
[2022-11-21 13:11] LABS: ALB/GLOB Ratio 0.9 RATIO (0.9-2.4); AST(SGOT) 11 U/L (15-37); Alanine Aminotransfer ALT/SGPT 30 U/L (16-61); Albumin, Serum 3.6 g/dL (3.2-5.0); Alkaline Phosphatase 108 U/L (45-117); Anion Gap 7 (5-15); BUN 14 mg/dL (7-18); BUN/Creat Ratio 13.5 RATIO (10-20); Chloride 104 mmol/L (98-107); Creatinine, Serum 1.04 mg/dL (0.70-1.30); EST Glomerular Filtration Rate 76 mL/min (>60); Est Glom Filt Rate - Afr Amer 92 mL/min (>60); Globulin 3.8 g/dL (2.2-4.2); Glucose 163 mg/dL (74-106); Potassium 3.6 mmol/L (3.5-5.1); Protein, Total 7.4 g/dL (6.4-8.2); Rheumatoid Factor < 10.0 IU/mL (<15); Sodium Level 140 mmol/L (136-145)
[2022-11-21 13:24] LABS: Hepatitis B Surface Antibody Reactive; Hepatitis B Surface Antigen Non-Reactive (Nonreactive); Hepatitis C Antibody Non-Reactive (Nonreactive)
[2022-11-22 11:38] LABS: CCP IgG Antibodies 1 units (0-19)
== END | disposition home or self-care (01) ==
LOC: MTLAB 10:15
PROVIDERS: PCP Preventive Medicine Occupational Medicine; Referring Provider Internal Medicine Rheumatology; Visit Provider Internal Medicine Rheumatology
DX: M06.4 Inflammatory polyarthropathy (principal); M19.041 Primary osteoarthritis, right hand; M17.12 Unilateral primary osteoarthritis, left knee; M47.897 Other spondylosis, lumbosacral region
CPT/HCPCS: 36415; 72170; 73030; 80053; 85025; 85652; 86140; 86200; 86431; 86706; 86803; 87340

== ENCOUNTER → 2023-02-16 | Outpatient (CLI) | payer MEDICARE, OTHER, SELFPAY ==
[2023-02-16 12:48] LABS: Absolute Lymphocyte Count 1.67 X10^3/uL (0.83-4.51); Absolute Neutrophil Count 3.5 X10^3/uL (2.0-7.7); Basophil# 0.04 X10^3/uL; Basophil% 0.6 % (0-1); Eosinophils% 3.2 % (0-5); Hematocrit 45.2 % (40-54); Hemoglobin 14.4 g/dL (13.0-16.5); Lymphocyte # 1.67 X10^3/ul (0.83-4.51); Lymphocyte % 27.1 % (19-41); Mean Corp Hgb Conc 31.9 g/dL (32-36); Mean Corpuscular Hgb 29.3 pg (27.0-32.0); Mean Corpuscular Volume 91.9 fL (80-94); Mean Platelet Vol. 10.1 fl (6.2-12.0); Monocyte# 0.74 X10^3/uL; NRBC Flagged by Analyzer 0 % (0-5); Neutrophil % 56.9 % (47-70); Platelet Count 290 K/mm3 (150-450); RBC Distribution Width CV 15.1 % (11.6-14.6); RBC Distribution Width SD 49.7 fl (35.1-43.9); Red Blood Count 4.92 M/mm3 (4.6-6.2); White Blood Count 6.2 K/mm3 (4.4-11.0)
[2023-02-16 13:25] LABS: AST(SGOT) 16 U/L (15-37); Alanine Aminotransfer ALT/SGPT 37 U/L (16-61); Albumin, Serum 3.6 g/dL (3.2-5.0); Alkaline Phosphatase 142 U/L (45-117); Anion Gap 4 (5-15); BUN 19 mg/dL (7-18); BUN/Creat Ratio 17.6 RATIO (10-20); Calcium,Total 9.6 mg/dL (8.5-10.1); Chloride 106 mmol/L (98-107); Creatinine, Serum 1.08 mg/dL (0.70-1.30); EST Glomerular Filtration Rate 73 mL/min (>60); Est Glom Filt Rate - Afr Amer 88 mL/min (>60); Globulin 3.5 g/dL (2.2-4.2); Glucose 308 mg/dL (74-106); Magnesium 2.4 mg/dL (1.6-2.6); Potassium 4.7 mmol/L (3.5-5.1); Protein, Total 7.1 g/dL (6.4-8.2); Sodium Level 139 mmol/L (136-145)
== END | disposition home or self-care (01) ==
LOC: MTLAB 10:22
PROVIDERS: PCP Preventive Medicine Occupational Medicine; Referring Provider Preventive Medicine Occupational Medicine; Visit Provider Preventive Medicine Occupational Medicine
DX: M06.4 Inflammatory polyarthropathy (principal); M19.041 Primary osteoarthritis, right hand; M17.12 Unilateral primary osteoarthritis, left knee; Z79.899 Other long term (current) drug therapy
CPT/HCPCS: 36415; 80053; 83735; 85025

== ENCOUNTER → 2023-04-24 | Outpatient (CLI) | payer MEDICARE, OTHER, SELFPAY ==
[2023-04-24 15:15] LABS: Absolute Lymphocyte Count 1.89 X10^3/uL (0.83-4.51); Basophil# 0.06 X10^3/uL; Basophil% 0.8 % (0-1); Eosinophil# 0.34 X10^3/uL; Eosinophils% 4.3 % (0-5); Hemoglobin 15.3 g/dL (13.0-16.5); Lymphocyte # 1.89 X10^3/ul (0.83-4.51); Mean Corp Hgb Conc 33.3 g/dL (32-36); Mean Corpuscular Hgb 31.4 pg (27.0-32.0); Mean Corpuscular Volume 94.5 fL (80-94); Mean Platelet Vol. 9.6 fl (6.2-12.0); Monocyte# 0.59 X10^3/uL; Monocyte% 7.5 % (0-10); NRBC Flagged by Analyzer 0 % (0-5); Neutrophil # 4.99 X10^3/uL (2.7-7.7); Neutrophil % 63.3 % (47-70); Platelet Count 256 K/mm3 (150-450); RBC Distribution Width SD 48.3 fl (35.1-43.9); Red Blood Count 4.87 M/mm3 (4.6-6.2); White Blood Count 7.9 K/mm3 (4.4-11.0)
[2023-04-24 15:41] LABS: ALB/GLOB Ratio 1.1 RATIO (0.9-2.4); AST(SGOT) 24 U/L (15-37); Alanine Aminotransfer ALT/SGPT 56 U/L (16-61); Albumin, Serum 3.7 g/dL (3.2-5.0); Alkaline Phosphatase 138 U/L (45-117); Anion Gap 6 (5-15); BUN 17 mg/dL (7-18); BUN/Creat Ratio 14.5 RATIO (10-20); Calcium,Total 9.6 mg/dL (8.5-10.1); Chloride 109 mmol/L (98-107); Creatinine, Serum 1.17 mg/dL (0.70-1.30); EST Glomerular Filtration Rate 66 mL/min (>60); Est Glom Filt Rate - Afr Amer 80 mL/min (>60); Globulin 3.5 g/dL (2.2-4.2); Glucose 141 mg/dL (74-106); Potassium 3.9 mmol/L (3.5-5.1); Protein, Total 7.2 g/dL (6.4-8.2); Sodium Level 142 mmol/L (136-145)
== END | disposition home or self-care (01) ==
LOC: MTLAB 14:11
PROVIDERS: PCP Preventive Medicine Occupational Medicine; Referring Provider Internal Medicine Rheumatology; Visit Provider Internal Medicine Rheumatology
DX: M06.4 Inflammatory polyarthropathy (principal); M19.041 Primary osteoarthritis, right hand; M17.12 Unilateral primary osteoarthritis, left knee; Z79.899 Other long term (current) drug therapy
CPT/HCPCS: 36415; 80053; 85025

== ENCOUNTER → 2023-08-21 | Outpatient (CLI) | payer MEDICARE, OTHER, SELFPAY ==
[2023-08-21 12:15] LABS: Absolute Lymphocyte Count 1.86 X10^3/uL (0.83-4.51); Absolute Neutrophil Count 3.7 X10^3/uL (2.0-7.7); Basophil# 0.04 X10^3/uL; Basophil% 0.6 % (0-1); Eosinophils% 7.4 % (0-5); Hematocrit 48.5 % (40-54); Lymphocyte # 1.86 X10^3/ul (0.83-4.51); Lymphocyte % 27.4 % (19-41); Mean Corpuscular Hgb 30.7 pg (27.0-32.0); Mean Corpuscular Volume 92.9 fL (80-94); Mean Platelet Vol. 9.3 fl (6.2-12.0); Monocyte# 0.65 X10^3/uL; Monocyte% 9.6 % (0-10); NRBC Flagged by Analyzer 0 % (0-5); Neutrophil # 3.73 X10^3/uL (2.7-7.7); Neutrophil % 54.9 % (47-70); Platelet Count 253 K/mm3 (150-450); RBC Distribution Width CV 13.1 % (11.6-14.6); RBC Distribution Width SD 44.3 fl (35.1-43.9); Red Blood Count 5.22 M/mm3 (4.6-6.2); White Blood Count 6.8 K/mm3 (4.4-11.0)
[2023-08-21 12:46] LABS: ALB/GLOB Ratio 1.1 RATIO (0.9-2.4); AST(SGOT) 21 U/L (15-37); Alanine Aminotransfer ALT/SGPT 42 U/L (16-61); Albumin, Serum 3.8 g/dL (3.2-5.0); Alkaline Phosphatase 125 U/L (45-117); Anion Gap 5 (5-15); BUN 23 mg/dL (7-18); BUN/Creat Ratio 17.8 RATIO (10-20); Calcium,Total 9.3 mg/dL (8.5-10.1); Chloride 108 mmol/L (98-107); Creatinine, Serum 1.29 mg/dL (0.70-1.30); EST Glomerular Filtration Rate 59 mL/min (>60); Est Glom Filt Rate - Afr Amer 71 mL/min (>60); Globulin 3.6 g/dL (2.2-4.2); Glucose 171 mg/dL (74-106); Protein, Total 7.4 g/dL (6.4-8.2); Sodium Level 140 mmol/L (136-145)
== END | disposition home or self-care (01) ==
LOC: MTLAB 10:46
PROVIDERS: PCP Preventive Medicine Occupational Medicine; Referring Provider Internal Medicine Rheumatology; Visit Provider Internal Medicine Rheumatology
DX: M06.4 Inflammatory polyarthropathy (principal); Z79.899 Other long term (current) drug therapy
CPT/HCPCS: 36415; 80053; 85025

== ENCOUNTER 2023-10-27 13:31 | Emergency (ER) | payer MEDICARE, OTHER, SELFPAY ==
[2023-10-27 13:32] VITALS: BP 199/96; PULSE 53; RESP 16; TEMP 35.9; O2SAT 98; BMI 24.4
[2023-10-27 13:42] VITALS: BP 180/99; PULSE 51; RESP 16; O2SAT 98
--- NOTE | 2023-10-27 13:54 | ED.RN ---
pt amb back to room with and no ataxia obs. pt with htn and worsening dizziness when performed eply manever at bedside. worse when pt turned head to lt side. c/o wall moving and nausea
--- NOTE | 2023-10-27 13:59 | CT_ITS ---
INDICATION: vertigo EXAMINATION: CT BRAIN WITHOUT CONTRAST, CTA HEAD, AND CTA NECK TECHNIQUE: Noncontrast axial images were obtained of the brain. Subsequently, routine carotid CT angiogram protocol was performed without and with IV contrast. In addition, images were obtained of the [place]. NASCET criteria using the distal ICAs for comparison were used for evaluation of stenoses. 3D reconstructions were reviewed. A radiation dose optimization technique was used for this scan. IV Contrast dosage and agent: 100 cc of Isovue-370 COMPARISON: No relevant prior comparison study available FINDINGS: --CT BRAIN WITHOUT CONTRAST: BRAIN PARENCHYMA: No intra- or extra-axial hemorrhage. No evidence of acute infarct. No intracranial mass or mass effect. There is preservation of the ignacio/white matter interface. Posterior fossa structures are unremarkable. CSF SPACES: Appropriate for age. No hydrocephalus. Basal cisterns are patent. CALVARIUM, SKULL BASE, PARANASAL SINUSES AND MASTOID AIR CELLS: Clear. No discrete lytic or blastic abnormalities. --CTA NECK: AORTIC ARCH AND BRANCHES: Normal anatomy, patent. RIGHT CCA: No occlusion, significant stenosis or dissection. RIGHT ICA: No occlusion, significant stenosis or dissection. LEFT CCA: No occlusion, significant stenosis or dissection. LEFT ICA: No occlusion, significant stenosis or dissection. RIGHT VERTEBRAL ARTERY: Somewhat small with dominant left side. No occlusion, significant stenosis or dissection. LEFT VERTEBRAL ARTERY: No occlusion, significant stenosis or dissection. NECK SOFT TISSUES: Unremarkable. --CTA HEAD: --Anterior circulation: ICAs: No significant stenosis at the intracranial/visualized segments. ACAs: No significant stenosis at the visualized segments. ACOM: Present. MCAs: No significant stenosis at the visualized segments. --Posterior circulation: PCOMs: Present. registered nurse cardiac: No significant stenosis at the visualized segments. BASILAR ARTERY: No significant stenosis. VERTEBRAL ARTERIES: Bilateral vertebral arteries are patent with dominant left side. No evidence of intracranial aneurysm or vascular malformation. CT/CTA Head AND Neck W/ Contrast IMPRESSION: 1. No acute intracranial process. 2. No intracranial great vessels stenosis. 3. Unremarkable common and internal carotid arteries. 4. Patent bilateral vertebral arteries with dominant left side. Electronically Signed: Von Rivero MD at 15:26 EST ,
--- NOTE | 2023-10-27 14:04 | EX.ED.DYSGE1 ---
HPI History of Present Illness Chief Complaint: Dizziness Informant: patient Narrative Narrative: Patient started having acute onset of vertigo and nausea along with trouble walking this morning that started as he got out of bed. Since then it has been intermittent, it resolves when he remains still but when he turns his head or changes position, the symptoms recur. Never had this before. Took his blood pressure medication as usual this morning, but blood pressure is high. No headache. No vision changes except her difficulty focusing on things when he is very vertiginous. Also when he is very vertiginous, he has trouble with his balance when walking. Denies any lateralizing neurologic symptoms or trouble speaking or understanding others. No recent head injury. He does not take aspirin or any anticoagulants (later saw that he is on warfarin and asked pt, he confirms that he is indeed still on that). [facility] Medical History Back pain Bradycardia Cardiology follow-up encounter Diabetes Dietary restriction Former smoker Heartburn High cholesterol History of atrial fibrillation History of echocardiogram History of irregular heartbeat History of lipoma History of stress test History of ulceration Hypertension Migraine headache Personal history of retained foreign body fully removed Prostate disease TIA (transient ischemic attack) Wears glasses Home Medications glimepiride 4 mg tablet 4 mg PO BID 11/03/16 [History Last Taken Unknown] atorvastatin 40 mg tablet 40 mg PO DAILY 08/29/19 [History Last Taken 03/01/22] glucosamine 750 [id number]-[id number] no1 644 mg-C 30 mg-aguilar 1 mg tablet 1 ea PO BID 08/29/19 [History Last Taken Unknown] losartan 50 mg tablet 50 mg PO DAILY 08/29/19 [History Last Taken 03/01/22] multivitamin 1 ea PO DAILY 08/29/19 [History Last Taken Unknown] atenolol 25 mg tablet 25 mg PO DAILY 02/22/22 [History Last Taken 03/01/22] finasteride 5 mg tablet 5 mg PO DAILY 02/22/22 [History Last Taken Unknown] flecainide 100 mg tablet 100 mg PO Q12H 02/22/22 [History Last Taken 03/01/22] warfarin 5 mg tablet 5 mg PO SUMOWEFRSA 02/22/22 [History Last Taken 02/20/22] warfarin 5 mg tablet 7 mg PO TUTH 02/22/22 [History Last Taken 02/20/22] metformin 500 mg tablet 1,000 mg PO BID 03/01/22 [History Last Taken Unknown] cinnamon bark 500 mg capsule (Cinnamon) 500 mg PO BID 04/28/22 [History Last Taken Unknown] fluorouracil 0.5 % topical cream 1 applic topical BID 04/28/22 [History Last Taken Unknown] meclizine 25 mg tablet 25 mg PO Q8H PRN PRN Dizziness #20 tabs 10/27/23 [Rx Last Taken Unknown] Allergy/AdvReac Type Severity Reaction Status Date / Time adhesive tape Allergy Rash Verified 10/27/23 13:32 Penicillins Allergy fever Verified 10/27/23 13:32 cyclobenzaprine AdvReac tachycardia Verified 10/27/23 13:32 [From Flexeril] diaphoresis Surgical History History of transurethral resection of prostate Hx of left knee surgery Social History Smoking Status: Former smoker ROS ROS ED Constitutional Constitutional ED: Denies chills or fever(s) Eyes Eyes: Denies change in vision or diplopia ENT ENT ED: Reports vertigo and other Details: Intermittent sharp pain just above the right ear but has been occurring off and on for longer than vertigo ; Denies rhinorrhea, sore throat or tinnitus Cardiovascular Cardiovascular: Denies chest pain or palpitations Respiratory/Chest Respiratory/Chest: Denies cough or dyspnea Gastrointestinal Gastrointestinal: Reports nausea; Denies abdominal pain, diarrhea or vomiting Genitourinary Genitourinary ED: Denies dysuria or hematuria Musculoskeletal Musculoskeletal: Denies back pain or neck pain Integumentary Denies abscess or rash Neurologic Neurologic: Reports as per HPI, abnormal gait, disequilibrium and dizziness; Denies abnormal hearing, focal weakness, headache(s), paresthesias or weakness Psychiatric Psychiatric: Denies anxiety or suicidal thoughts EXAM Physical Exam Const Vital Signs: 10/27/23 13:32 10/27/23 13:42 10/27/23 13:52 Temperature 96.7 F L Temperature Source Temporal Pulse Rate 53 L 51 L Respiratory Rate 16 16 Respiratory Effort Normal Non-Labored Respiratory Pattern Normal Blood Pressure 199/96 H 180/99 H Blood Pressure Mean 130 126 Pulse Ox 98 98 Oxygen Delivery Method Room Air Room Air 10/27/23 15:35 Temperature Temperature Source Pulse Rate Respiratory Rate Respiratory Effort Respiratory Pattern Blood Pressure 158/80 H Blood Pressure Mean 106 Pulse Ox 95 Oxygen Delivery Method Room Air Positive well nourished and well developed General Appearance ED: well developed and NAD HEENT Reports TM's clear and moist mucous membranes normocephalic and atraumatic Tympanic Membrane ED: Yes TM's clear Eyes PERRL and EOMs intact bilaterally Eyes Narrative: No vertical or rotatory nystagmus. No nonfatigable nystagmus. Neck full ROM and supple Resp normal respiratory effort and clear to auscultation bilaterally Cardio regular rate, regular rhythm and no murmurs GI non-tender and non-distended Auscultation: normoactive bowel sounds Palpation: soft Back/Spine no CVA tenderness General Back: other FROM Extremity normal to inspection General Extremety ED: Negative for edema, pulses abnormal or tenderness General Extremity: Negative for edema or pulses abnormal Neuro oriented x3, CN's II-XII intact bilaterally and no sensory deficits noted Neuro Narrative: Normal speech. Normal pxiahi-[id number]-mtkd and ndxc-rm-vveh bilaterally. NIHSS 0. Positive [place] bilaterally reproducing symptoms, worse to the left, without nonfatigable nystagmus, but afterwards when patient is dizzy, I performed a jolt test and it is abnormal. Sensorium / Orientation: awake and alert Motor Exam: strength 5/5 throughout Skin no rashes or lesions noted and no wounds MDM MDM MDM Narrative Medical decision making narrative: At this point, this is very consistent with peripheral vertigo, however his blood pressure is very high so given his age and risk factors along with this considering central causes such as stroke and performing CT angiography. In addition, after he passed the dysphagia screen, we gave him meclizine orally and IV Zofran for his symptoms. I reviewed the images and the report of the CTA, it is negative for any acute stenosis or occlusion or infarct or bleed. I agree with the report. Labs are unremarkable. Patient is feeling better after the medications. I had him walk back and forth in the room, he has no objective ataxia and does feel better doing so. Given this I feel more comfortable discharging him with meclizine to follow-up as an outpatient. His pressure is down to 158/80 and his jolt test was abnormal, more consistent with a peripheral etiology. Less likely to be acute stroke especially since he is anticoagulated on warfarin, which we discovered prior to discharge and asked him about. Given appropriate discharge instructions. Lab Data Attestation: I reviewed the patient's lab results. Labs: Laboratory Results - last 24 hr 10/27/23 14:10 WBC 8.5 RBC 4.96 Hgb 15.5 Hct 46.1 MCV 92.9 MCH 31.3 MCHC 33.6 RDW Std Deviation 46.5 H RDW Coeff of Star 13.9 Plt Count 304 MPV 9.0 Immature Gran % (Auto) 0.400 Neut % (Auto) 75.3 H Lymph % (Auto) 16.2 L [place] % (Auto) 6.7 Eos % (Auto) 1.3 Baso % (Auto) 0.1 Absolute Neuts (auto) 6.4 Absolute Lymphs (auto) 1.37 Nucleated RBC % 0 Sodium 144 Potassium 4.7 Chloride 111 H Carbon Dioxide 30.0 Anion Gap 3 L BUN 25 H Creatinine 1.02 Estim Creat Clear Calc 61.13 Est GFR (MDRD) Af Amer 94 Est GFR (MDRD) Non-Af 77 BUN/Creatinine Ratio 24.5 H Glucose 165 H Calcium 9.8 Radiography Diagnostic Testing: Clinical Impression(s) from Imaging Studies Head/Neck CTA 10/27/23 13:59 IMPRESSION: 1. No acute intracranial process. 2. No intracranial great vessels stenosis. 3. Unremarkable common and internal carotid arteries. 4. Patent bilateral vertebral arteries with dominant left side. Electronically Signed: Von Rivero MD at 15:26 EST , Rhythm Strip Rhythm Strip: Sinus Rhythm Rate: 55 Ectopy: None EKG Initial EKG: Attestation: I personally reviewed and interpreted this EKG as follows: Interpretation: Sinus Rhythm, No Acute Injury Pattern and AV Block (1st deg) Discharge Plan Triage Chief Complaint: Dizziness ED Provider: Filemon Romero Dx/Rx/DC Orders Clinical Impression: Accelerated hypertension, Peripheral vertigo, unspecified Instructions: ED BPV Vertigo Prescriptions: New meclizine [meclizine] 25 mg tablet 25 mg PO Q8H PRN PRN (Reason: Dizziness) Qty: 20 0RF No Action glimepiride 4 MG tablet 4 mg PO BID multivitamin 1 EACH tablet 1 ea PO DAILY losartan 50 MG tablet 50 mg PO DAILY atorvastatin 40 MG tablet 40 mg PO DAILY [id number]-hvvp-[id number]-aguilar-bosw 1 EACH tablet 1 ea PO BID atenolol 25 mg Tablet 25 mg PO DAILY warfarin 5 mg Tablet 5 mg PO SUMOWEFRSA Hold Instructions: Resume on 03/10/22. warfarin 5 mg Tablet 7 mg PO TUTH Hold Instructions: Resume on 03/10/22. flecainide 100 mg Tablet 100 mg PO Q12H finasteride 5 mg Tablet 5 mg PO DAILY metformin 500 mg tablet 1,000 mg PO BID Rx Instructions: Metformin HCL fluorouracil 0.5 % Cream 1 applic TOPICAL BID cinnamon bark [Cinnamon] 500 mg Capsule 500 mg PO BID Primary Care Provider: Karson Ko Referrals: Billy Mccarthy MD [Med Staff - Active Staff] - 1 Week if not improving (For reevaluation of vertigo) Karson Ko DO [Primary Care Provider] - As soon as possible (For reevaluation of blood pressure/symptoms) Disposition Disposition: Home, Self Care
--- NOTE | 2023-10-27 14:05 | EKG12_ITS ---
Test Reason : DIZZINESS Blood Pressure : / mmHG Vent. Rate : 053 BPM Atrial Rate : 053 BPM P-R Int : 306 ms QRS Dur : 126 ms QT Int : 474 ms P-R-T Axes : 023 -11 004 degrees QTc Int : 444 ms Sinus bradycardia with 1st degree A-V block Non-specific intra-ventricular conduction block Abnormal ECG Confirmed by GALI CHACKO, NOEMI ([id number]), editor house organ MED JACOBO ([id number]) on 10/29/2023 6:09:06 AM Referred By: Confirmed By:NOEMI TALBERT MD
--- OUTSIDE RECORDS SUMMARY | 2023-10-27 14:16 | XMS RPT_ITS | CCD ---
Author Name Unknown Address [address] [place] [address] Organization [facility] Care Team Providers Care Grounds Worker Name Role Phone KITTY CHEUNG DO Primary Care Physician [phone] MERLIN CHACKO, SAMIRA Payton Attending Unavail able KITTY CHEUNG DO Primary Care Unavailable KITTY CEHUNG DO Primary Care Unavailable ELLEN ANDERSON MD Attending Unavailable KITTY CHEUNG DO Primary Care Unavailable NADIR RODRIGUEZ PA-C Attending Unavailab le Allergies Allergy Classification Reported Allergen(s) Allergy Type Date of Onset Reaction(s) Facility (9 sources) Adhesive Tape Allergy to substance Rash [facility] Work Phone: (9 sources) cyclobenzaprine; Translations: [cyclobenzaprine ] Drug Allergy Tachycardia [facility] Work Phone: (9 sources) Penicillin; Translations: [penicillins] Drug Allergy [facility] Work Phone: (8 sources) predniSONE; Translations: [prednisone] Drug Allergy severe abd pain [facility] Work Phone: Medications Current Medications Medication Drug Class(es) Dates Sig (Normalized) Sig (Original) 4-aminobenzoate 500 mg oral capsule (2 sources) Start: 02-07-2023 take 0.5 tablet by mouth once daily potassium aminobenzoate 500 mg oral capsule 0.5 tab(s), Oral, qDay, taking 250mg, 0 Refill(s) Start Date: 02/07/23 Status: Ordered atenolol 25 mg oral tablet (9 sources) beta-Adrenergic Smith Start: 02-12-2023 take 1 tablet by mouth twice daily atenolol 25 mg oral tablet 1 tab(s), Oral, BID, # 180 tab(s), 3 Refill(s), Pharmacy: [id number], 164, cm, 02/08/23 7:45:00 EDT, Height, kg, 02/08/23 7:45:00 EDT, Dosing Weight Start Date: 02/12/23 Status: Ordered Completed/Discontinued Medications Medication Drug Class(es) Dates Sig (Normalized) Sig (Original) gabapentin 100 mg oral capsule (2 sources) Anti-epileptic Agent Start: 07-17-2022 End: 08-16-2022 gabapentin 100 mg oral capsule Dose : 100 mg = 1 cap(s), Oral, TID, # 90 cap(s), 0 Refill(s), Pharmacy: [id number], Bilateral shoulder pain Numbness and tingling in left arm, 163.2, cm, 07/17/22 14:17:00 EDT, Height, 73.5 Start Date: 07/17/22 Stop Date: 08/16/22 Status: Ordered magnesium oxide 250 mg oral tablet (2 sources) Start: 02-07-2023 End: 02-16-2023 Magnesium 250 mg tablet Dose : 500 mg = 2 tab(s), Oral, qDay, # 20 tab(s), 0 Refill(s) Start Date: 02/07/23 Stop Date: 02/16/23 Status: Ordered Problems Problem Classification Problem Date Documented Da te Episodic/Chronic Abdominal hernia (9 sources) Hiatal hernia 07-22-2019 Episodic Abdominal pain (3 sources) Suprapubic pain 01-12-2022 Episodic Cardiac dysrhythmias (20 sources) Atrial fibrillation; Translations: [Tachycardia-bradycardi a] 06-30-2020 Chronic Conditions associated with dizziness or vertigo (9 sources) Dizziness and giddiness 12-01-2020 Episodic Diabetes mellitus with complications (2 sources) Mixed hyperlipidemia due to type 2 diabetes mellitus 05-02-2023 Chronic Diabetes mellitus without complication (7 sources) Diabetes mellitus 07-22-2019 Chronic Results Test Name Value Interpretation Reference Range Facil ity Vital Signs Date Time Vital Sign Value Performing Clinician Faci lity 10-16-2023 16:43-0500 Body temperature 98.78 [degF] SAMIRA BOYER MD [facility] 10-16-2023 16:43-0500 Diastolic Blood Pressure Non-Invasive 96 mm[Hg] SAMIRA BOYER MD [facility] 10-16-2023 16:43-0500 Heart rate 102 /min SAMIRA BOYER MD [facility] 10-16-2023 16:43-0500 Respiratory rate 18 /min SAMIRA BOYER MD [facility] 10-16-2023 16:43-0500 Systolic Blood Pressure Non-Invasive 176 mm[Hg] SAMIRA BOYER MD [facility] 02-04-2023 12:34-0400 Diastolic Blood Pressure Non-Invasive 84 1 ELLEN ANDERSON MD [facility] 02-04-2023 12:34-0400 Heart rate 55 /min ELLEN ANDERSON MD [facility] 02-04-2023 12:34-0400 Respiratory rate 16 /min ELLEN ANDERSON MD [facility] 02-04-2023 12:34-0400 Systolic Blood Pressure Non-Invasive 167 1 ELLEN ANDERSON MD [facility] 02-04-2023 11:20-0400 Diastolic Blood Pressure Non-Invasive 86 1 ELLEN ANDERSON MD [facility] 02-04-2023 11:20-0400 Heart rate 70 /min ELLEN ANDERSON MD [facility] 02-04-2023 11:20-0400 Respiratory rate 18 /min ELLEN ANDERSON MD [facility] 02-04-2023 11:20-0400 Systolic Blood Pressure Non-Invasive 166 1 ELLEN ANDERSON MD [facility] 02-04-2023 10:10-0400 Body temperature 98.06 [degF] ELLEN ANDERSON MD [facility] 02-04-2023 10:10-0400 Diastolic Blood Pressure Non-Invasive 93 1 ELLEN ANDERSON MD [facility] 02-04-2023 10:10-0400 Heart rate 70 /min ELLEN ANDERSON MD [facility] 02-04-2023 10:10-0400 Respiratory rate 18 /min ELLEN ANDERSON MD [facility] 02-04-2023 10:10-0400 Systolic Blood Pressure Non-Invasive 200 1 ELLEN ANDERSON MD [facility] 12-30-2021 12:50-0400 Heart rate 59 /min LEIF BABIN MD [facility] 12-30-2021 12:49-0400 Diastolic Blood Pressure NBP 63 1 LEIF BABIN MD [facility] 12-30-2021 12:49-0400 Heart rate 56 /min LEIF BABIN MD [facility] 12-30-2021 12:49-0400 Respiratory rate 16 /min LEIF BABIN MD [facility] 12-30-2021 12:49-0400 Systolic Blood Pressure NBP 145 1 LEIF BABIN MD [facility] 12-30-2021 12:38-0400 Diastolic Blood Pressure NBP 84 1 LEIF BABIN MD [facility] 12-30-2021 12:38-0400 Heart rate 56 /min LEIF BABIN MD [facility] 12-30-2021 12:38-0400 Respiratory rate 17 /min LEIF BABIN MD [facility] 12-30-2021 12:38-0400 Systolic Blood Pressure NBP 139 1 LEIF BABIN MD [facility] 12-30-2021 12:30-0400 Diastolic Blood Pressure NBP 69 1 LEIF BABIN MD [facility] 12-30-2021 12:30-0400 Respiratory rate 21 /min LEIF BABIN MD [facility] 12-30-2021 12:30-0400 Systolic Blood Pressure NBP 123 1 LEIF BABIN MD [facility] 12-30-2021 10:58-0400 Body height 165.1 cm LEIF BABIN MD [facility] 12-30-2021 10:58-0400 Body temperature 98.06 [degF] LEIF BABIN MD [facility] 12-30-2021 10:58-0400 Body weight 75 kg LEIF BABIN MD [facility] 12-30-2021 10:58-0400 Heart rate 54 /min LEIF BABIN MD [facility] 12-02-2021 11:46-0500 Body height 165.1 cm LEIF BABIN MD [facility] 12-02-2021 11:46-0500 Body weight 71.3 kg LEIF BABIN MD [facility] Encounters Encounter Date Encounter Type Care Provider Facility Start: 10-16-2023 End: 10-16-2023 Emergency department patient visit SAMIRA BOYER MD Facility:B Start: 10-16-2023 End: 10-16-2023 Emergency department patient visit SAMIRA BOYER MD [facility] Start: 07-17-2023 End: 07-18-2023 ambulatory [facility] Facility:[facility] Start: 07-17-2023 End: 07-17-2023 Patient encounter procedure NADIR RODRIGUEZ PA-C [facility] Start: 02-04-2023 End: 02-04-2023 Emergency department [facility] visit [facility] Facility:[facility] Start: 02-04-2023 End: 02-04-2023 Emergency department patient visit ELLEN ANDERSON MD [facility] Start: 07-19-2022 End: 07-19-2022 Patient encounter procedure MAIN RICK DIRECTOR OF RESEARCH-SUPERVISOR BOARDING [facility] Start: 06-16-2022 End: 06-16-2022 Patient encounter procedure KITTY ABRAMSTiana CAN [facility] Start: 01-09-2022 End: 01-09-2022 Patient encounter procedure CLAUDIA ZAMARRIPA MD [facility] Start: 12-30-2021 End: 12-30-2021 Minor Procedure LEIF BABIN MD [facility] Start: 12-02-2021 End: 12-02-2021 Admission to [facility] LEIF BABIN MD [facility] Start: 11-10-2021 End: 11-10-2021 Patient encounter procedure KITTY JONATAN CAN [facility] Procedures Date Procedure Procedure Detail Performing Clinician Start: 10-15-2021 Colonoscopy KITTY DEL CID DO Start: 05-31-2020 Tilt table test KITTY ABRAMSTiana CAN Immunizations Immunization Date Immunization Notes Care Provider [facility] 04-12-2022 SARS-CoV-2 mRNA (tozinameran) vaccine MAIN RICK DIRECTOR OF RESEARCH-SUPERVISOR BOARDING [facility] 08-18-2021 SARS-CoV-2 mRNA (tozinameran) vaccine LEIF BABIN MD [facility] 08-16-2021 influenza virus vaccine, unspecified formulation LEIF BABIN MD [facility] 01-19-2021 COVID-19, mRNA, LNP- S, PF, 100 mcg or 50 mcg dose; Translations: [Moderna COVID-19 Vaccine] KITTY CHEUNG DO [facility] 12-22-2020 COVID-19, mRNA, LNP- S, PF, 100 mcg or 50 mcg dose; Translations: [Moderna COVID-19 Vaccine] KITTY CHEUNG [facility] Payers Date Payer Category Payer Medicare [id number] 2023 Private Health Insurance CLI [id number] 1955 Unknown [id number] 1955 Unknown [id number] 1955 Unknown [id number] Social History Date Type Detail Facility Start: 01-02-2020 Ex-smoker (finding) [facility] Sex Assigned At Male [facility] Medical Equipment Procedure Code Equipment Code Equipment Origin al Text Equipment Identifier Dates FDA Start: 01-07-2020 FDA Start: 01-07-2020 FDA Start: 01-07-2020 FDA Start: 01-07-2020 Unknown Unknown 01/07/20 Unknown Unknown FDA Start: 01-07-2020 Unknown Unknown 01/07/20 Unknown Unknown FDA Start: 01-07-2020 Unknown Unknown 01/07/20 Unknown Unknown FDA Start: 01-07-2020 Unknown Unknown 01/07/20 Unknown Unknown FDA Start: 01-07-2020 Unknown Unknown 01/07/20 Unknown Unknown FDA Start: 01-07-2020 Functional Status Date Assessment Result Facility 10-16-2023 Functional Status Standard Safet y ID band on, Allergy Band on, Call device within reach, Bed in low position, Wheels locked, Upper/Half-Length side-rails up, Bedside Cart Locked, Safety level maintained [facility] 02-04-2023 Functional Status Standard Safet y ID band on, Allergy Band on, Call device within reach, Bed in low position, Wheels locked, Upper/Half-Length side-rails up, Bedside Cart Locked, Safety level maintained [facility] Mental Status Date Assessment Result Facility 10-16-2023 Mental Status Orientation Oriented x 4 [facility] 02-04-2023 Mental Status Orientation Oriented x 4 [facility] Clinical Notes 12-30-2021 to 10-16-2023 LaboratoryLaboratoryLaboratory Note Date & Type Note Facility 10-16-2023 Hospital Discharge instructions Patient Education 10/16/2023 17:02:54 ED COVID-19 Know the Symptoms (11/2022)(CUSTOM) Know the symptoms of COVID-19, which can include the following: If you are experiencing any of these symptoms, get tested for COVID-19. Symptoms can range from mild to severe and appear 2 14 days after you are exposed to the virus that causes COVID-19. This is not a list of all possible symptoms. Please call your healthcare provider for any other symptoms that are severe or concerning to you. 10/16/2023 17:02:54 ED COVID-19 Isolate and Take Precautions (11/2022)(CUSTOM) 10/16/2023 17:02:54 ED COVID-19 10 Things You Can Do To Manage Symptoms (11/2022)(CUSTOM) If you have possible or confirmed COVID-19 Follow Up Care 10/16/2023 16:39:37 With:KITTY CHEUNG DO Address: [address] [place] [phone] When:2-4 days [facility] 10-16-2023 Emergency department Discharge summary Discharge Instructions Thank you for allowing [facility] to assist you with your healthcare needs. The following is important discharge information regarding your hospital visit. Diagnosis from Today's Visit Cough What to Do Next Instructions from Your Care Team Follow-up with your PCP in the next 2 to 4 days. Please return to the emergency department if you start experiencing high fevers or shortness of breath. No qualifying data available. Post Acute Orders No qualifying data available. You Need to Schedule the Following Appointments Follow Up with KITTY CHEUNG DO When Within 2-4 days [facility] [address] [facility] [place] [address]- [phone] Allergies Flexeril (Tachycardia) Tape (Rash) penicillin Medications Please ask your primary doctor or pharmacist before taking any other medication not listed, including over the counter drugs, herbal medications, vitamins and or supplements as they may interact with your home medications. What How Much When Why Instructions Last Dose Unchanged atenolol (atenolol 25 mg oral tablet) 1 tab(s) by mouth Two (2) times a day Unchanged atorvastatin (atorvastatin 40 mg oral tablet) 1 tab(s) by mouth Once a day Diabetes mellitus Duration: 90 Days Unchanged chondroitin-glucosamine (Osteo Bi-Flex) 1 by mouth Two (2) times a day OTC Unchanged dapagliflozin (Farxiga 10 mg oral tablet) 1 tab(s) by mouth Once a day Diabetes Unchanged flecainide (flecainide 100 mg oral tablet) 1 tab(s) by mouth Every 12 hours Unchanged fluorouracil topical (fluorouracil 0.5% topical cream) 1 application Topical Two (2) times a day as needed for Rash Actinic keratosis Unchanged folic acid (folic acid 1 mg oral tablet) 1 tab(s) by mouth Once a day Unchanged glimepiride (glimepiride 4 mg oral tablet) 1 tab(s) by mouth Two (2) times a day Duration: 90 Days Unchanged herbal/ nutritional product (turmeric 500 mg oral capsule) 1 cap by mouth Two (2) times a day Unchanged losartan (losartan 50 mg oral tablet) 1 tab(s) by mouth Once a day Duration: 90 Days Unchanged magnesium oxide (Magnesium 250 mg tablet) 2 tab(s) by mouth Once a day Duration: 10 Days Unchanged metFORMIN (metFORMIN 500 mg oral tablet (IR)) 2 tab(s) by mouth Two (2) times a day Diabetes mellitus Duration: 90 Days Unchanged methotrexate (methotrexate 2.5 mg oral tablet) 6 tab(s) Unchanged multivitamin (Vitamin B Complex oral capsule) 1 cap by mouth Once a day Unchanged potassium aminobenzoate (potassium aminobenzoate 500 mg oral capsule) 0.5 tab(s) by mouth Once a day taking 250mg Unchanged warfarin (warfarin 2 mg oral tablet) 1 tab(s) by mouth Once a day Duration: 90 Days Take with 5 mg tablet to equal 7 mg daily Unchanged warfarin (warfarin 5 mg oral tablet) 1 tab(s) by mouth Once a day On anticoagulant therapy Duration: 90 Days Take with Coumadin 2 mg tab to equal 7 mg as directed. Please take this list to your next doctor s visit. Bring all medications you take, including over the counter medications, herbals and other supplements with you to your doctor s visit. Patients and families are reminded to discard old lists and to update any records with all medication providers or retail pharmacies. Education Materials Know the symptoms of COVID-19, which can include the following: If you are experiencing any of these symptoms, get tested for COVID-19. Symptoms can range from mild to severe and appear 2 14 days after you are exposed to the virus that causes COVID-19. This is not a list of all possible symptoms. Please call your healthcare provider for any other symptoms that are severe or concerning to you. If you have possible or confirmed COVID-19 Additional Information VACCINATE! IT SAVES LIVES! Members of the community who have not yet received the COVID-19 vaccine and would like to receive it can visit one of [facility] vaccine clinics. There are many vaccine clinic locations within the [facility]. For locations and available times, please visit [email or web address] It is important to note that some COVID mobile vaccine clinics are held outdoors and may be canceled in rainy or stormy conditions. To learn more about pediatric vaccinations (ages 5-11), we invite you to visit the [facility] webpage. [email or web address] To learn more about the COVID-19 vaccine, we invite you to visit the CDC website for a list of frequently asked questions. https://www.cdc.gov/coronavirus/2 019-ncov/vaccines/faq.html [facility] Patient [facility] Access Instructions: Stay connected with your healthcare team and access your personal medical information anytime with the [facility] Patient Portal. If you would like a full copy of your medical records please contact the [facility] Medical Records Department Sunday through Sunday between 8a.m. and 4:30p.m. Please follow the directions below to access the portal: 1.Access the email account you provided upon registration to the [facility].2.Look for an invitation email from [facility].3.Open the email and access the invitation link: Accept Invitation to [facility]4.Fill in the required granados to create your account. Sign into www.[employer] with your username and password that you created in the above steps to stay up to date. You can then view a summary of results, a summary of your visits, and the ability to download your summaries to your computer or send the information securely to a physician. Remember that your healthcare information is confidential, so carefully consider who you will allow to register on the [facility] Patient Portal for access to your information. You can also access the [facility] Patient Portal on the [employer] tabby. Simply click on Health Records under Health Data and then click on the [employer] logo. HOW TO SAFELY DISPOSE OF PRESCRIPTION MEDICATIONS Please use one of the following methods to safely dispose of your unused medications. 1.Use a drug disposal kit: the drug disposal pouch allows you to safely discard your old and unused drugs. Ask your nurse to give you one when you are discharged.2.Visit a local take-back location: Many local pharmacies and police departments have programs that collect old and unwanted prescription drugs. Call your local pharmacy or go to http://bit.ly/1U0Gd7i to find one close to you.3.Make use of household items: Use cat litter or old coffee grounds to dispose medications if other options are not available. Mix your drugs with these household products, seal them in an airtight container and throw it into the garbage. Call [facility]: [phone] to be sure your drugs can be disposed of in this way. Some medicines may require a different approach.4.Never flush your medications down the toilet. IF YOU HAVE BEEN PRESCRIBED AN OPIOIDS FOR PAIN If you have been prescribed an opioid (such as hydrocodone, oxycodone or morphine), it is critical to understand the possible side effects and risks of opioid pain medications. Even when taken as directed, opioids can have several side effects including: Tolerance, meaning you might need to take more of a medication for the same pain relief. Nausea, vomiting and/or constipation. Sleepiness, dizziness, dry mouth, confusion, depression or itching. Physical dependence, meaning you have withdrawal symptoms when a medication is stopped ? this can develop within a few days. KNOW YOUR RESPONSIBILITIES It is important to know exactly how much and how often to take the opioid pain medications you are prescribed. Never take opioids in higher amounts or more often than prescribed. Do not combine opioids with alcohol or other drugs that cause drowsiness, such as benzodiazepines, also known as benzos, including diazepam and alprazolam, muscle relaxants or sleep aids. Never sell or share prescription opioids. This is illegal. Store opioids in a secure place and out of reach of others (including children, family, friends and visitors). The last page(s) of this document has been signed and retained as a CHART COPY Signatures Patient Education Materials ED COVID-19 Know the Symptoms (11/2022)(CUSTOM) ED COVID-19 Isolate and Take Precautions (11/2022)(CUSTOM) ED COVID-19 10 Things You Can Do To Manage Symptoms (11/2022)(CUSTOM) Medication Leaflets My discharge plan and instructions have been reviewed and explained to me and I,KITTY MERCADO understand my current condition and have read and understand these discharge instructions. I have received a written copy of the plan/instructions. If I have questions, I am aware that I should contact my doctor. Patient/Family Service Center Director Signature: Date/Time: Relationship to Patient: ____ Witness Name/Signature: Date/Time: [facility] 07-19-2023 Note . MICRO - Microbiology PROCEDURE: Urine Culture [*1] SOURCE: Urine, Clean Catch BODY SITE: COLLECTED DATE/TIME: 07/17/2023 07:24 EDT RECEIVED DATE/TIME: 07/17/2023 14:52 EDT START DATE/TIME: 07/17/2023 14:52 EDT FREE TEXT SOURCE: FINAL REPORTS Final Report [] Verified Date/Time/Personnel: 07/19/2023 07:27 EDT No growth at 48 hours. PRELIMINARY REPORTS Preliminary Report [] Verified Date/Time/Personnel: 07/18/2023 10:29 EDT No growth to date Performing Locations *1: This test was performed at: [facility], [address] [place] [address], [facility] , [facility] ([place]) 02-04-2023 Hospital Discharge instructions Patient Education 02/04/2023 11:46:29 High-Potassium Diet Potassium-Rich Foods The normal adult diet usually contains 2,000 mg to 4,000 mg of potassium per day. More potassium is needed when you lose too much potassium from your body. This can happen if you have diarrhea or vomiting. It can also happen if you take a medicine to make you urinate more (diuretic). To increase the amount of potassium in your diet, include these high-potassium foods. [The (*) indicates foods highest in potassium.] Vegetables Artichokes. Cooked 1/2 cup, 200 mg to 300 mg* Asparagus. Cooked 1/2 cup, 200 mg to 300 mg Beans. White, red, bragg cooked 1/2 cup, 300 mg to 500 mg* Beets. Cooked 1/2 cup, 200 mg to 300 mg Broccoli. Cooked or raw 1 cup, 200 mg to 500 mg* Nuevo sprouts. Cooked 1/2 cup, 200 mg to 300 mg Cabbage. Raw 1 cup, 100 mg to 200 mg Carrots. Raw or cooked 1/2 cup, 100 mg to 200 mg Celery. Raw 1 cup, 200 mg to 300 mg [place] beans. Fresh or frozen 1/2 cup, 300 mg to 500 mg* Mushrooms. Raw or cooked 1/2 cup, 100 mg to 300 mg Peas. Cooked 1/2 cup, 150 mg to 250 mg Potatoes. Baked 1 medium, 500 mg to 900 mg* Spinach. Cooked 1 cup, 800 mg to 900 mg* Spinach. Raw 2 cups, 300 mg to 400 mg * Squash, winter. Fresh, frozen, or cooked 1/2 cup, 200 mg to 400 mg Tomato. Fresh 1 medium, 200 mg to 300 mg Tomato juice. Canned 1/2 cup, 200 mg to 300 mg Fruits Apple juice. Unsweetened 1 cup, 200 mg to 300 mg Apricots. Canned 1/2 cup, 200 mg to 300 mg Apricots. Dried 4 pieces, 100 mg to 200 mg Avocado. Raw 1/2 cup, 300 mg to 400 mg* Banana. Fresh 1 small, 300 mg to 400 mg* Cantaloupe. Fresh 1 cup diced, 300 mg to 400 mg* Grape juice. Unsweetened 1 cup, 200 mg to 300 mg Honeydew melon. Fresh 1 cup diced, 300 mg to 400 mg* O'Brien. Fresh 1 medium, 200 mg to 300 mg O'Brien juice. Unsweetened, fresh or frozen 1/2 cup, 200 mg to 300 mg Pineapple juice. Unsweetened 1 cup, 300 mg to 400 mg Prune juice. Unsweetened 1/2 cup, 300 mg to 400 mg* Prunes. Dried 5 pieces, 300 mg to 400 mg* Strawberries. Fresh or frozen 1 cup, 200 mg to 300 mg Meat Red meat. Cooked 3 ounces, 100 mg to 300 mg Seafood Cod, flounder, halibut. Cooked 3 ounces, 100 mg to 300 mg* [place]. Cooked, 3 ounces 300 mg to 400 mg* Scallops. Cooked 3 ounces, 200 mg to 300 mg* Shrimp. Cooked 3/4 cup, 100 mg to 200 mg Tuna. Fresh or canned 3/4 cup, 200 mg to 500 mg [id number] [employer] [place] [address], [place] [address]. All rights reserved. This information is not intended as a substitute for professional medical care. Always follow your healthcare professional's instructions. 02/04/2023 11:46:23 Hyperglycemia (High Blood Sugar) Hyperglycemia (High Blood Sugar) Too much glucose (sugar) in your blood is called hyperglycemia or high blood sugar. High blood sugar can lead to a dangerous condition called ketoacidosis. In severe cases, it can lead to coma. Possible Causes of Hyperglycemia Inadequate treatment plan for diabetes Being sick Being under stress Taking certain medications, such as steroids Eating too much food, especially carbohydrates Being less active than usual Not taking enough diabetes medication Symptoms of Hyperglycemia Hyperglycemia may not cause symptoms. If you do have symptoms, they may include: Thirst Frequent need to urinate Feeling tired Nausea Itchy, dry skin Blurry vision Fast breathing Weakness Dizziness Wounds or skin infections that don t heal Unexplained weight loss if hyperglycemia lasts for more than a few days What You Should Do Check your blood sugar. Drink plenty of sugar-free, caffeine-free liquids such as water. Don t drink fruit juice. Check your blood sugar again every 4 hours. If you take insulin or diabetes medications, follow your sick-day plan for taking medication. Call your healthcare provider if you are not able to eat. Check your blood or urine for ketones as directed. Call your health care provider if your blood sugar and ketones do not return to your target range. Preventing High Blood Sugar To help keep your blood sugar from getting too high: Control stress. When you're ill, follow your sick-day plan. Follow your meal plan. Eat only the amount of food on your meal plan Follow your exercise plan. Take your insulin or diabetes medications as directed by you health care team. Also test your blood sugar as directed. If the plan is not working for you, discuss it with your doctor. Other Things to Do Carry a medical ID card or wear a medical alert bracelet. It should say that you have diabetes. It should also say what to do in case you pass out or go into a coma. Make sure family, friends, and coworkers know the signs of high blood sugar. Tell them what to do if your blood sugar gets very high and you can t help yourself. Talk to your health care team about other things you can do to prevent high blood sugar. Special note: Drink plenty of sugar-free and caffeine-free liquids when you feel symptoms of hyperglycemia. Call your doctor if you keep having episodes of hyperglycemia. [id number] [employer]. [address] [place] [address]. All rights reserved. This information is not intended as a substitute for professional medical care. Always follow your healthcare professional's instructions. 02/04/2023 11:46:20 Hypokalemia Hypokalemia Hypokalemia means a low level of potassium in the blood. This most often occurs in people who take water pills (diuretics). It can also occur because of severe vomiting or diarrhea. You may also have it if you take laxatives for long periods of time. It sometimes happens if you have low magnesium (hypomagnesemia). If you have this, your healthcare provider will treat the low magnesium first. A mild case of hypokalemia usually causes no symptoms. It is only found with blood testing. More severe potassium loss causes overall weakness, muscle or abdominal cramps, rapid or irregular heartbeats (heart palpitations), low blood pressure, and muscle weakness. Home care Take any potassium supplements as prescribed. Eat foods rich in potassium. The highest amount is found in avocado, baked potatoes, spinach, cantaloupe, cod, halibut, salmon, and scallops. White, red, or bragg beans are also very good sources. A modest amount of potassium is found in orange juice, bananas, carrots, and tomato juice. If you take certain types of diuretics, you will also need to take potassium supplements. If you take a diuretic, discuss potassium supplements with your doctor. Follow-up care Follow up with your healthcare provider for a repeat blood test within the next week, or as advised by our staff. When to seek medical advice Call your healthcare provider right away if any of the following occur: Increased weakness, fatigue, or muscle cramps Dizziness Call 911 Call 911 if any of the following occur: Irregular heartbeat, extra beats, or very fast heart rate Loss of consciousness [id number] [employer]. [address] [place] [address]. All rights reserved. This information is not intended as a substitute for professional medical care. Always follow your healthcare professional's instructions. 02/04/2023 11:46:18 Hypertension, Established Established High Blood Pressure High blood pressure (hypertension) is a chronic disease. Often, healthcare providers don t know what causes it. But it can be caused by certain health conditions and medicines. If you have high blood pressure, you may not have any symptoms. If you do have symptoms, they may include headache, dizziness, changes in your vision, chest pain, and shortness of breath. But even without symptoms, high blood pressure that s not treated raises your risk for heart attack, heart failure, and stroke. High blood pressure is a serious health risk and shouldn t be ignored. Blood pressure measurements are given as 2 numbers. Systolic blood pressure is the upper number. This is the pressure when the heart contracts. Diastolic blood pressure is the lower number. This is the pressure when the heart relaxes between beats. You will see your blood pressure readings written together. For example, a person with a systolic pressure of 118 and a diastolic pressure of 78 will have 118/78 written in the medical record. Blood pressure is categorized as normal, elevated, or stage 1 or stage 2 high blood pressure: Normal blood pressure is systolic of less than 120 and diastolic of less than 80 (120/80) Elevated blood pressure is systolic of 120 to 129 and diastolic less than 80 Stage 1 high blood pressure is systolic is 130 to 139 or diastolic between 80 to 89 Stage 2 high blood pressure is when systolic is 140 or higher or the diastolic is 90 or higher Home care If you have high blood pressure, follow these home care guidelines to help lower your blood pressure. If you are taking medicines for high blood pressure, these methods may reduce or end your need for medicines in the future. Start a weight-loss program if you are overweight. Cut back on how much salt you get in your diet. Here s how to do this: oDon t eat foods that have a lot of salt. These include olives, pickles, smoked meats, and salted potato chips. oDon t add salt to your food at the table. oUse only small amounts of salt when cooking. Start an exercise program. Talk with your healthcare provider about the type of exercise program that would be best for you. It doesn't have to be hard. Even brisk walking for 20 minutes 3 times a week is a good form of exercise. Don t take medicines that stimulate the heart. This includes many [id number] cold and sinus decongestant pills and sprays, as well as diet pills. Check the warnings about high blood pressure on the label. Before buying any euxd-sau-[id number] medicines or supplements, always ask the pharmacist about the product's potential interaction with your high blood pressure and your high blood pressure medicines. Stimulants such as amphetamine or cocaine could be deadly for someone with high blood pressure. Never take these. Limit how much caffeine you get in your diet. Switch to caffeine-free products. Stop smoking. If you are a long-time smoker, this can be hard. Talk to your healthcare provider about medicines and nicotine replacement options to help you. Also, enroll in a stop-smoking program to make it more likely that you will quit for good. Learn how to handle stress. This is an important part of any program to lower blood pressure. Learn about relaxation methods like meditation, yoga, or biofeedback. If your provider prescribed medicines, take them exactly as directed. Missing doses may cause your blood pressure get out of control. If you miss a dose or doses, check with your healthcare provider or pharmacist about what to do. Consider buying an automatic blood pressure machine to check your blood pressure at home. Ask your provider for a recommendation. You can get one of these at most pharmacies. The [place] [employer] recommends the following guidelines for home blood pressure monitoring: Don't smoke or drink coffee for 30 minutes before taking your blood pressure. Go to the bathroom before the test. Relax for 5 minutes before taking the measurement. Sit with your back supported (don't sit on a couch or soft chair); keep your feet on the floor uncrossed. Place your arm on a solid flat surface (like a table) with the upper part of the arm at heart level. Place the middle of the cuff directly above the bend of the elbow. Check the monitor's instruction manual for an illustration. Take multiple readings. When you measure, take 2 to 3 readings one minute apart and record all of the results. Take your blood pressure at the same time every day, or as your healthcare provider recommends. Record the date, time, and blood pressure reading. Take the record with you to your next medical appointment. If your blood pressure monitor has a built-in memory, simply take the monitor with you to your next appointment. Call your provider if you have several high readings. Don't be frightened by a single high blood pressure reading, but if you get several high readings, check in with your healthcare provider. Note: When blood pressure reaches a systolic (top number) of 180 or higher OR diastolic (bottom number) of 110 or higher, seek emergency medical treatment. Follow-up care You will need to see your healthcare provider regularly. This is to check your blood pressure and to make changes to your medicines. Make a follow-up appointment as directed. Bring the record of your home blood pressure readings to the appointment. When to seek medical advice Call your healthcare provider right away if any of these occur: Blood pressure reaches a systolic (upper number) of 180 or higher OR a diastolic (bottom number) of 110 or higher Chest pain or shortness of breath Severe headache Throbbing or rushing sound in the ears Nosebleed Sudden severe pain in your belly (abdomen) Extreme drowsiness, confusion, or fainting Dizziness or spinning sensation (vertigo) Weakness of an arm or leg or one side of the face You have problems speaking or seeing [id number] [employer]. [address] [place] [address]. All rights reserved. This information is not intended as a substitute for professional medical care. Always follow your healthcare professional's instructions. 02/04/2023 11:46:15 Muscle Spasm Muscle Spasm A muscle spasm (also called a cramp) is an involuntary muscle contraction. The muscle tightens quickly and strongly. A hard lump may form in the muscle. Muscle spasms are very painful. Here's how to treat and prevent muscle spasms. What causes muscles to spasm? Often, the cause of a muscle spasm is not known. Muscle spasm is due to irritation of muscle fibers. Some things can make a muscle spasm more likely. These include: Injury Heavy exercise Overtired muscles A muscle held in one position for a long time Dehydration Low levels of certain minerals in the body Certain medicines, such as diuretics or water pills Certain medical conditions, such as kidney failure or diabetes Stopping a muscle spasm Muscle spasms often come and go quickly. When a muscle goes into spasm, very gently stretch and massage the muscle. This may help calm the muscle fibers. Then rest the muscle. Preventing muscle spasms Although there is little or no evidence that staying hydrated, taking certain vitamins or minerals, or stretching works to prevent cramps, these measures may help and have other benefits. Talk to your healthcare provider about steps to take to prevent muscle spasms. Try to: Drink enough fluids to prevent dehydration, especially when you exercise. Take vitamin or mineral supplements. Get regular exercise. Stretch regularly, especially before exercise. Limit caffeine and smoking. Take a prescription muscle relaxant. When to call your doctor Call your doctor if you have any of the following: Severe cramping Cramping that lasts a long time, does not go away with stretching, or keeps coming back Pain, tingling, or weakness in the arms or legs Pain that wakes you up at night [id number] [employer] [place] [address]. All rights reserved. This information is not intended as a substitute for professional medical care. Always follow your healthcare professional's instructions. Follow Up Care 02/04/2023 10:08:34 With:KITTY CHEUNG Address: [address] [place] [phone] Business (1) When:2-4 days Comments:Schedule appointment as soon as possibleReturn to ED if symptoms worsenFollow up for lab review, blood pressure and recheck. Take 400mg magnesium oxide 1-2x/day [facility] 02-04-2023 Emergency department Discharge summary Discharge Instructions Thank you for allowing [facility] to assist you with your healthcare needs. The following is important discharge information regarding your hospital visit. Diagnosis from Today's Visit Muscle spasm Hypertension Hypokalemia Hyperglycemia Shoulder pain-swelling What to Do Next Instructions from Your Care Team No qualifying data available. Post Acute Orders No qualifying data available. You Need to Schedule the Following Appointments Follow Up with KITTY CHEUNG When Within 2-4 days Why: Schedule appointment as soon as possible Return to ED if symptoms worsen Follow up for lab review, blood pressure and recheck. Take 400mg magnesium oxide 1-2x/day Where: [address] [place] [phone] Business (1) Allergies Flexeril (Tachycardia) Tape (Rash) penicillin predniSONE (severe abd pain) Medications Please ask your primary doctor or pharmacist before taking any other medication not listed, including over the counter drugs, herbal medications, vitamins and or supplements as they may interact with your home medications. What How Much When Why Instructions Last Dose New orphenadrine (orphenadrine 100 mg oral tablet, extended release) 1 tab(s) by mouth Two (2) times a day Muscle spasm Hypertension Duration: 7 Days prn muscle spasm Printed Prescription Unchanged atenolol (atenolol 25 mg oral tablet) 1 tab(s) by mouth Once a day Unchanged atorvastatin (atorvastatin 40 mg oral tablet) 1 tab(s) by mouth Once a day Diabetes mellitus Duration: 90 Days Unchanged chondroitin-glucosamine (Osteo Bi-Flex) 1 by mouth Two (2) times a day OTC Unchanged dapagliflozin (Farxiga 10 mg oral tablet) 1 tab(s) by mouth Once a day Diabetes Unchanged flecainide (flecainide 100 mg oral tablet) 1 tab(s) by mouth Every 12 hours Unchanged gabapentin (gabapentin 100 mg oral capsule) 1 cap by mouth Three (3) times a day Bilateral shoulder pain Numbness and tingling in left arm Duration: 30 Days Unchanged glimepiride (glimepiride 4 mg oral tablet) 1 tab(s) by mouth Two (2) times a day Duration: 90 Days Unchanged losartan (losartan 50 mg oral tablet) 1 tab(s) by mouth Once a day Duration: 90 Days Unchanged metFORMIN (metFORMIN 500 mg oral tablet (IR)) 2 tab(s) by mouth Two (2) times a day Diabetes mellitus Duration: 90 Days Unchanged multivitamin (Vitamin B Complex oral capsule) 1 cap by mouth Once a day Unchanged predniSONE (predniSONE 10 mg oral tablet) 1 tab(s) by mouth Once a day PMR (polymyalgia rheumatica) with food Unchanged warfarin (warfarin 2 mg oral tablet) 1 tab(s) by mouth Once a day Duration: 90 Days Take with 5 mg tablet to equal 7 mg daily Unchanged warfarin (warfarin 5 mg oral tablet) 1 tab(s) by mouth Once a day On anticoagulant therapy Duration: 90 Days Take with Coumadin 2 mg tab to equal 7 mg daily Please take this list to your next doctor s visit. Bring all medications you take, including over the counter medications, herbals and other supplements with you to your doctor s visit. Patients and families are reminded to discard old lists and to update any records with all medication providers or retail pharmacies. Education [employer] Potassium-Rich Foods The normal adult diet usually contains 2,000 mg to 4,000 mg of potassium per day. More potassium is needed when you lose too much potassium from your body. This can happen if you have diarrhea or vomiting. It can also happen if you take a medicine to make you urinate more (diuretic). To increase the amount of potassium in your diet, include these high-potassium foods. [The (*) indicates foods highest in potassium.] Vegetables Artichokes. Cooked 1/2 cup, 200 mg to 300 mg* Asparagus. Cooked 1/2 cup, 200 mg to 300 mg Beans. White, red, bragg cooked 1/2 cup, 300 mg to 500 mg* Beets. Cooked 1/2 cup, 200 mg to 300 mg Broccoli. Cooked or raw 1 cup, 200 mg to 500 mg* [place] sprouts. Cooked 1/2 cup, 200 mg to 300 mg Cabbage. Raw 1 cup, 100 mg to 200 mg Carrots. Raw or cooked 1/2 cup, 100 mg to 200 mg Celery. Raw 1 cup, 200 mg to 300 mg [place] beans. Fresh or frozen 1/2 cup, 300 mg to 500 mg* Mushrooms. Raw or cooked 1/2 cup, 100 mg to 300 mg Peas. Cooked 1/2 cup, 150 mg to 250 mg Potatoes. Baked 1 medium, 500 mg to 900 mg* Spinach. Cooked 1 cup, 800 mg to 900 mg* Spinach. Raw 2 cups, 300 mg to 400 mg * Squash, winter. Fresh, frozen, or cooked 1/2 cup, 200 mg to 400 mg Tomato. Fresh 1 medium, 200 mg to 300 mg Tomato juice. Canned 1/2 cup, 200 mg to 300 mg Fruits Apple juice. Unsweetened 1 cup, 200 mg to 300 mg Apricots. Canned 1/2 cup, 200 mg to 300 mg Apricots. Dried 4 pieces, 100 mg to 200 mg Avocado. Raw 1/2 cup, 300 mg to 400 mg* Banana. Fresh 1 small, 300 mg to 400 mg* Cantaloupe. Fresh 1 cup diced, 300 mg to 400 mg* Grape juice. Unsweetened 1 cup, 200 mg to 300 mg Honeydew melon. Fresh 1 cup diced, 300 mg to 400 mg* [place]. Fresh 1 medium, 200 mg to 300 mg [place] juice. Unsweetened, fresh or frozen 1/2 cup, 200 mg to 300 mg Pineapple juice. Unsweetened 1 cup, 300 mg to 400 mg Prune juice. Unsweetened 1/2 cup, 300 mg to 400 mg* Prunes. Dried 5 pieces, 300 mg to 400 mg* Strawberries. Fresh or frozen 1 cup, 200 mg to 300 mg Meat Red meat. Cooked 3 ounces, 100 mg to 300 mg Seafood Cod, flounder, halibut. Cooked 3 ounces, 100 mg to 300 mg* [place]. Cooked, 3 ounces 300 mg to 400 mg* Scallops. Cooked 3 ounces, 200 mg to 300 mg* Shrimp. Cooked 3/4 cup, 100 mg to 200 mg Tuna. Fresh or canned 3/4 cup, 200 mg to 500 mg [id number] [employer] [place] [address]. All rights reserved. This information is not intended as a substitute for professional medical care. Always follow your healthcare professional's instructions. Hyperglycemia (High Blood Sugar) Too much glucose (sugar) in your blood is called hyperglycemia or high blood sugar. High blood sugar can lead to a dangerous condition called ketoacidosis. In severe cases, it can lead to coma. Possible Causes of Hyperglycemia Inadequate treatment plan for diabetes Being sick Being under stress Taking certain medications, such as steroids Eating too much food, especially carbohydrates Being less active than usual Not taking enough diabetes medication Symptoms of Hyperglycemia Hyperglycemia may not cause symptoms. If you do have symptoms, they may include: Thirst Frequent need to urinate Feeling tired Nausea Itchy, dry skin Blurry vision Fast breathing Weakness Dizziness Wounds or skin infections that don t heal Unexplained weight loss if hyperglycemia lasts for more than a few days What You Should Do Check your blood sugar. Drink plenty of sugar-free, caffeine-free liquids such as water. Don t drink fruit juice. Check your blood sugar again every 4 hours. If you take insulin or diabetes medications, follow your sick-day plan for taking medication. Call your healthcare provider if you are not able to eat. Check your blood or urine for ketones as directed. Call your health care provider if your blood sugar and ketones do not return to your target range. Preventing High Blood Sugar To help keep your blood sugar from getting too high: Control stress. When you're ill, follow your sick-day plan. Follow your meal plan. Eat only the amount of food on your meal plan Follow your exercise plan. Take your insulin or diabetes medications as directed by you health care team. Also test your blood sugar as directed. If the plan is not working for you, discuss it with your doctor. Other Things to Do Carry a medical ID card or wear a medical alert bracelet. It should say that you have diabetes. It should also say what to do in case you pass out or go into a coma. Make sure family, friends, and coworkers know the signs of high blood sugar. Tell them what to do if your blood sugar gets very high and you can t help yourself. Talk to your health care team about other things you can do to prevent high blood sugar. Special note: Drink plenty of sugar-free and caffeine-free liquids when you feel symptoms of hyperglycemia. Call your doctor if you keep having episodes of hyperglycemia. [id number] [employer]. [address] [place] [address]. All rights reserved. This information is not intended as a substitute for professional medical care. Always follow your healthcare professional's instructions. Hypokalemia Hypokalemia means a low level of potassium in the blood. This most often occurs in people who take water pills (diuretics). It can also occur because of severe vomiting or diarrhea. You may also have it if you take laxatives for long periods of time. It sometimes happens if you have low magnesium (hypomagnesemia). If you have this, your healthcare provider will treat the low magnesium first. A mild case of hypokalemia usually causes no symptoms. It is only found with blood testing. More severe potassium loss causes overall weakness, muscle or abdominal cramps, rapid or irregular heartbeats (heart palpitations), low blood pressure, and muscle weakness. Home care Take any potassium supplements as prescribed. Eat foods rich in potassium. The highest amount is found in avocado, baked potatoes, spinach, cantaloupe, cod, halibut, salmon, and scallops. White, red, or bragg beans are also very good sources. A modest amount of potassium is found in orange juice, bananas, carrots, and tomato juice. If you take certain types of diuretics, you will also need to take potassium supplements. If you take a diuretic, discuss potassium supplements with your doctor. Follow-up care Follow up with your healthcare provider for a repeat blood test within the next week, or as advised by our staff. When to seek medical advice Call your healthcare provider right away if any of the following occur: Increased weakness, fatigue, or muscle cramps Dizziness Call 911 Call 911 if any of the following occur: Irregular heartbeat, extra beats, or very fast heart rate Loss of consciousness [id number] [employer] [place] [address]. All rights reserved. This information is not intended as a substitute for professional medical care. Always follow your healthcare professional's instructions. Established High Blood Pressure High blood pressure (hypertension) is a chronic disease. Often, healthcare providers don t know what causes it. But it can be caused by certain health conditions and medicines. If you have high blood pressure, you may not have any symptoms. If you do have symptoms, they may include headache, dizziness, changes in your vision, chest pain, and shortness of breath. But even without symptoms, high blood pressure that s not treated raises your risk for heart attack, heart failure, and stroke. High blood pressure is a serious health risk and shouldn t be ignored. Blood pressure measurements are given as 2 numbers. Systolic blood pressure is the upper number. This is the pressure when the heart contracts. Diastolic blood pressure is the lower number. This is the pressure when the heart relaxes between beats. You will see your blood pressure readings written together. For example, a person with a systolic pressure of 118 and a diastolic pressure of 78 will have 118/78 written in the medical record. Blood pressure is categorized as normal, elevated, or stage 1 or stage 2 high blood pressure: Normal blood pressure is systolic of less than 120 and diastolic of less than 80 (120/80) Elevated blood pressure is systolic of 120 to 129 and diastolic less than 80 Stage 1 high blood pressure is systolic is 130 to 139 or diastolic between 80 to 89 Stage 2 high blood pressure is when systolic is 140 or higher or the diastolic is 90 or higher Home care If you have high blood pressure, follow these home care guidelines to help lower your blood pressure. If you are taking medicines for high blood pressure, these methods may reduce or end your need for medicines in the future. Start a weight-loss program if you are overweight. Cut back on how much salt you get in your diet. Here s how to do this: oDon t eat foods that have a lot of salt. These include olives, pickles, smoked meats, and salted potato chips. oDon t add salt to your food at the table. oUse only small amounts of salt when cooking. Start an exercise program. Talk with your healthcare provider about the type of exercise program that would be best for you. It doesn't have to be hard. Even brisk walking for 20 minutes 3 times a week is a good form of exercise. Don t take medicines that stimulate the heart. This includes many gffy-jjl-zrlafkz cold and sinus decongestant pills and sprays, as well as diet pills. Check the warnings about high blood pressure on the label. Before buying any rzdg-sto-rcyolgo medicines or supplements, always ask the pharmacist about the product's potential interaction with your high blood pressure and your high blood pressure medicines. Stimulants such as amphetamine or cocaine could be deadly for someone with high blood pressure. Never take these. Limit how much caffeine you get in your diet. Switch to caffeine-free products. Stop smoking. If you are a long-time smoker, this can be hard. Talk to your healthcare provider about medicines and nicotine replacement options to help you. Also, enroll in a stop-smoking program to make it more likely that you will quit for good. Learn how to handle stress. This is an important part of any program to lower blood pressure. Learn about relaxation methods like meditation, yoga, or biofeedback. If your provider prescribed medicines, take them exactly as directed. Missing doses may cause your blood pressure get out of control. If you miss a dose or doses, check with your healthcare provider or pharmacist about what to do. Consider buying an automatic blood pressure machine to check your blood pressure at home. Ask your provider for a recommendation. You can get one of these at most pharmacies. The [place] [employer] recommends the following guidelines for home blood pressure monitoring: Don't smoke or drink coffee for 30 minutes before taking your blood pressure. Go to the bathroom before the test. Relax for 5 minutes before taking the measurement. Sit with your back supported (don't sit on a couch or soft chair); keep your feet on the floor uncrossed. Place your arm on a solid flat surface (like a table) with the upper part of the arm at heart level. Place the middle of the cuff directly above the bend of the elbow. Check the monitor's instruction manual for an illustration. Take multiple readings. When you measure, take 2 to 3 readings one minute apart and record all of the results. Take your blood pressure at the same time every day, or as your healthcare provider recommends. Record the date, time, and blood pressure reading. Take the record with you to your next medical appointment. If your blood pressure monitor has a built-in memory, simply take the monitor with you to your next appointment. Call your provider if you have several high readings. Don't be frightened by a single high blood pressure reading, but if you get several high readings, check in with your healthcare provider. Note: When blood pressure reaches a systolic (top number) of 180 or higher OR diastolic (bottom number) of 110 or higher, seek emergency medical treatment. Follow-up care You will need to see your healthcare provider regularly. This is to check your blood pressure and to make changes to your medicines. Make a follow-up appointment as directed. Bring the record of your home blood pressure readings to the appointment. When to seek medical advice Call your healthcare provider right away if any of these occur: Blood pressure reaches a systolic (upper number) of 180 or higher OR a diastolic (bottom number) of 110 or higher Chest pain or shortness of breath Severe headache Throbbing or rushing sound in the ears Nosebleed Sudden severe pain in your belly (abdomen) Extreme drowsiness, confusion, or fainting Dizziness or spinning sensation (vertigo) Weakness of an arm or leg or one side of the face You have problems speaking or seeing 1490-5150 [employer]. [address] [place] [address]. All rights reserved. This information is not intended as a substitute for professional medical care. Always follow your healthcare professional's instructions. Muscle Spasm A muscle spasm (also called a cramp) is an involuntary muscle contraction. The muscle tightens quickly and strongly. A hard lump may form in the muscle. Muscle spasms are very painful. Here's how to treat and prevent muscle spasms. What causes muscles to spasm? Often, the cause of a muscle spasm is not known. Muscle spasm is due to irritation of muscle fibers. Some things can make a muscle spasm more likely. These include: Injury Heavy exercise Overtired muscles A muscle held in one position for a long time Dehydration Low levels of certain minerals in the body Certain medicines, such as diuretics or water pills Certain medical conditions, such as kidney failure or diabetes Stopping a muscle spasm Muscle spasms often come and go quickly. When a muscle goes into spasm, very gently stretch and massage the muscle. This may help calm the muscle fibers. Then rest the muscle. Preventing muscle spasms Although there is little or no evidence that staying hydrated, taking certain vitamins or minerals, or stretching works to prevent cramps, these measures may help and have other benefits. Talk to your healthcare provider about steps to take to prevent muscle spasms. Try to: Drink enough fluids to prevent dehydration, especially when you exercise. Take vitamin or mineral supplements. Get regular exercise. Stretch regularly, especially before exercise. Limit caffeine and smoking. Take a prescription muscle relaxant. When to call your doctor Call your doctor if you have any of the following: Severe cramping Cramping that lasts a long time, does not go away with stretching, or keeps coming back Pain, tingling, or weakness in the arms or legs Pain that wakes you up at night 2027-0200 [employer]. [address] [place] [address]. All rights reserved. This information is not intended as a substitute for professional medical care. Always follow your healthcare professional's instructions. Additional Information VACCINATE! IT SAVES LIVES! Members of the community who have not yet received the COVID-19 vaccine and would like to receive it can visit one of [facility] vaccine clinics. There are many vaccine clinic locations within the [facility]. For locations and available times, please visit www.[email or web address].[place].g [email or web address] It is important to note that some COVID mobile vaccine clinics are held outdoors and may be canceled in rainy or stormy conditions. To learn more about pediatric vaccinations (ages 5-11), we invite you to visit the [facility] webpage. [email or web address].[email or web address].org/pa [email or web address]-Dztio-Sxgbcmtupqt-Freque ngin-Hnope-Zcdtqueya.html To learn more about the COVID-19 vaccine, we invite you to visit the CDC website for a list of frequently asked questions. https://www.cdc.gov/coronavirus/2 019-ncov/vaccines/faq.html [facility] Access Instructions: Stay connected with your healthcare team and access your personal medical information anytime with the [facility]. If you would like a full copy of your medical records please contact the [facility] Medical Records Department Sunday through Sunday between 8a.m. and 4:30p.m. Please follow the directions below to access the portal: 1.Access the email account you provided upon registration to the [facility].2.Look for an invitation email from [facility].3.Open the email and access the invitation link: Accept Invitation to [facility]4.Fill in the required granados to create your account. Sign into www.[employer] with your username and password that you created in the above steps to stay up to date. You can then view a summary of results, a summary of your visits, and the ability to download your summaries to your computer or send the information securely to a physician. Remember that your healthcare information is confidential, so carefully consider who you will allow to register on the [facility] Portal for access to your information. You can also access the [facility] Patient Portal on the [employer] tabby. Simply click on Health Records under Health Data and then click on the [employer] logo. HOW TO SAFELY DISPOSE OF PRESCRIPTION MEDICATIONS Please use one of the following methods to safely dispose of your unused medications. 1.Use a drug disposal kit: the drug disposal pouch allows you to safely discard your old and unused drugs. Ask your nurse to give you one when you are discharged.2.Visit a local take-back location: Many local pharmacies and police departments have programs that collect old and unwanted prescription drugs. Call your local pharmacy or go to http://[employer].First To File/5S6Fh8a to find one close to you.3.Make use of household items: Use cat litter or old coffee grounds to dispose medications if other options are not available. Mix your drugs with these household products, seal them in an airtight container and throw it into the garbage. Call [facility]: [phone] to be sure your drugs can be disposed of in this way. Some medicines may require a different approach.4.Never flush your medications down the toilet. IF YOU HAVE BEEN PRESCRIBED AN OPIOIDS FOR PAIN If you have been prescribed an opioid (such as hydrocodone, oxycodone or morphine), it is critical to understand the possible side effects and risks of opioid pain medications. Even when taken as directed, opioids can have several side effects including: Tolerance, meaning you might need to take more of a medication for the same pain relief. Nausea, vomiting and/or constipation. Sleepiness, dizziness, dry mouth, confusion, depression or itching. Physical dependence, meaning you have withdrawal symptoms when a medication is stopped ? this can develop within a few days. KNOW YOUR RESPONSIBILITIES It is important to know exactly how much and how often to take the opioid pain medications you are prescribed. Never take opioids in higher amounts or more often than prescribed. Do not combine opioids with alcohol or other drugs that cause drowsiness, such as benzodiazepines, also known as benzos, including diazepam and alprazolam, muscle relaxants or sleep aids. Never sell or share prescription opioids. This is illegal. Store opioids in a secure place and out of reach of others (including children, family, friends and visitors). The last page(s) of this document has been signed and retained as a CHART COPY Signatures Patient Education Materials High-Potassium Diet Hyperglycemia (High Blood Sugar) Hypokalemia Hypertension, Established Muscle Spasm Medication Leaflets My discharge plan and instructions have been reviewed and explained to me and I,KITTY MERCADO understand my current condition and have read and understand these discharge instructions. I have received a written copy of the plan/instructions. If I have questions, I am aware that I should contact my doctor. Patient/Family Service Center Director Signature: Date/Time: Relationship to Patient: ____ Witness Name/Signature: Date/Time: [facility] 06-16-2022 Note ORIGINAL EXAMINATION: THREE XRAY VIEWS OF THE LEFT KNEE9/11/2021 9:51 am TECHNIQUE: 3 supine views and a single upright AP view COMPARISON: None HISTORY: ORDERING SYSTEM PROVIDED HISTORY: Reason for Exam: Pain left knee FINDINGS: There is tricompartment osteoarthritis with marginal spurring. Mild medial compartment narrowing. Small suprapatellar joint effusion. Moderate patellar and tibial tuberosity enthesopathy. IMPRESSION: Mild degenerative changes. Joint effusion. Interpreted by: Maximus Quezada MD Preliminary Report By: Maximus Quezada MD Electronically signed By Maximus Quezada MD Dictated Date: 06/16/2022 1:32:12 PM Prelim Date: 06/16/2022 1:33:09 PM Sign Date: 06/16/2022 1:33:09 PM Ordering Provider: [facility] 06-16-2022 Note ORIGINAL EXAMINATION: THREE XRAY VIEWS OF THE LEFT KNEE06/16/2022 9:51 am TECHNIQUE: 3 supine views and a single upright AP view COMPARISON: None HISTORY: ORDERING SYSTEM PROVIDED HISTORY: Reason for Exam: Pain left knee FINDINGS: There is tricompartment osteoarthritis with marginal spurring. Mild medial compartment narrowing. Small suprapatellar joint effusion. Moderate patellar and tibial tuberosity enthesopathy. IMPRESSION: Mild degenerative changes. Joint effusion. Interpreted by: Maximus Quezada MD Preliminary Report By: Maximus Quezada MD Electronically signed By Maximus Quezada MD Dictated Date: 06/16/2022 1:32:12 PM Prelim Date: 06/16/2022 1:33:09 PM Sign Date: 06/16/2022 1:33:09 PM Ordering Provider: [facility] 12-30-2021 Hospital Discharge instructions Patient Education 12/30/2021 12:36:39 Monitored Anesthesia Care, Care After Monitored Anesthesia Care, Care After These instructions provide you with information about caring for yourself after your procedure. Your health care provider may also give you more specific instructions. Your treatment has been planned according to current medical practices, but problems sometimes occur. Call your health care provider if you have any problems or questions after your procedure. What can I expect after the procedure? After your procedure, you may: Feel sleepy for several hours. Feel clumsy and have poor balance for several hours. Feel forgetful about what happened after the procedure. Have poor judgment for several hours. Feel nauseous or vomit. Have a sore throat if you had a breathing tube during the procedure. Follow these instructions at home: For at least 24 hours after the procedure: Have a responsible adult stay with you. It is important to have someone help care for you until you are awake and alert. Rest as needed. Do not: ?Participate in activities in which you could fall or become injured. ?Drive. ?Use heavy machinery. ?Drink alcohol. ?Take sleeping pills or medicines that cause drowsiness. ?Make important decisions or sign legal documents. ?Take care of children on your own. Eating and drinking Follow the diet that is recommended by your health care provider. If you vomit, drink water, juice, or soup when you can drink without vomiting. Make sure you have little or no nausea before eating solid foods. General instructions Take rqwy-epy-wjpsnzw and prescription medicines only as told by your health care provider. If you have sleep apnea, surgery and certain medicines can increase your risk for breathing problems. Follow instructions from your health care provider about wearing your sleep device: ?Anytime you are sleeping, including during daytime naps. ?While taking prescription pain medicines, sleeping medicines, or medicines that make you drowsy. If you smoke, do not smoke without supervision. Keep all follow-up visits as told by your health care provider. This is important. Contact a health care provider if: You keep feeling nauseous or you keep vomiting. You feel light-headed. You develop a rash. You have a fever. Get help right away if: You have trouble breathing. Summary For several hours after your procedure, you may feel sleepy and have poor judgment. Have a responsible adult stay with you for at least 24 hours or until you are awake and alert. This information is not intended to replace advice given to you by your health care provider. Make sure you discuss any questions you have with your health care provider. Document Released: 01/21/2017 Document Revised: 12/30/2018 Document Reviewed: 01/21/2017 [employer] Patient Education 2020 Cardiac Guard. 12/30/2021 12:36:29 Colonoscopy, Adult, Care After, Koqm-ne-Wswz Colonoscopy, Adult, Care After This sheet gives you information about how to care for yourself after your procedure. Your doctor may also give you more specific instructions. If you have problems or questions, call your doctor. What can I expect after the procedure? After the procedure, it is common to have: A small amount of blood in your poop for 24 hours. Some gas. Mild cramping or bloating in your belly. Follow these instructions at home: General instructions For the first 24 hours after the procedure: ?Do not drive or use machinery. ?Do not sign important documents. ?Do not drink alcohol. ?Do your daily activities more slowly than normal. ?Eat foods that are soft and easy to digest. Take cstz-uys-apzzwwd or prescription medicines only as told by your doctor. To help cramping and bloating: Try walking around. Put heat on your belly (abdomen) as told by your doctor. Use a heat source that your doctor recommends, such as a moist heat pack or a heating pad. ?Put a towel between your skin and the heat source. ?Leave the heat on for 20 30 minutes. ?Remove the heat if your skin turns bright red. This is especially important if you cannot feel pain, heat, or cold. You can get burned. Eating and drinking Drink enough fluid to keep your pee (urine) clear or pale yellow. Return to your normal diet as told by your doctor. Avoid heavy or fried foods that are hard to digest. Avoid drinking alcohol for as long as told by your doctor. Contact a doctor if: You have blood in your poop (stool) 2 3 days after the procedure. Get help right away if: You have more than a small amount of blood in your poop. You see large clumps of tissue (blood clots) in your poop. Your belly is swollen. You feel sick to your stomach (nauseous). You throw up (vomit). You have a fever. You have belly pain that gets worse, and medicine does not help your pain. Summary After the procedure, it is common to have a small amount of blood in your poop. You may also have mild cramping and bloating in your belly. For the first 24 hours after the procedure, do not drive or use machinery, do not sign important documents, and do not drink alcohol. Get help right away if you have a lot of blood in your poop, feel sick to your stomach, have a fever, or have more belly pain. This information is not intended to replace advice given to you by your health care provider. Make sure you discuss any questions you have with your health care provider. Document Released: 11/03/2011 Document Revised: 08/01/2018 Document Reviewed: 06/25/2017 [employer] Patient Education 2020 Cardiac Guard. Follow Up Care 11/28/2021 14:11:05 With:LEIF BABIN MD, Surgery Address: [phone] When: Unknown Comments:YOU HAD A CLEAN COLONOSCOPY TODAY. YOUR NEXT COLONOSCOPY SHOULD BE DONE IN 10 YEARS OR SOONER IF YOU HAVE CONCERNING SYMPTOMS. CALL DR BABIN WITH ANY QUESTIONS. GO TO THE EMERGENCY ROOM WITH ANY URGENT MATTERS. [facility] Evaluation + Plan note Future Appointments Appointment Date:11/23/2021 09:45:00 AM Scheduled Provider: Location:[facility] Appointment Type:CV Office Procedure ILR Appointment Date:11/23/2021 10:15:00 AM Scheduled Provider: Location:[facility] Appointment Type:CV OV Appointment Date:12/21/2021 09:30:00 AM Scheduled Provider:KITTY CHEUNG DO Location:[facility] Appointment Type:PC OV [facility] Evaluation + Plan note Future Appointments Appointment Date:12/21/2021 09:30:00 AM Scheduled Provider:KITTY CHEUNG DO Location:[facility] Appointment Type:PC OV Appointment Date:02/01/2022 09:45:00 AM Scheduled Provider:DANIEL WU Location:[facility] Appointment Type:CV OV Appointment Date:02/23/2022 08:15:00 AM Scheduled Provider: Location:[facility] Appointment Type:CV Remote Procedure HM [facility] Evaluation + Plan note Future Appointments Appointment Date:01/02/2022 02:30:00 PM Scheduled Provider:CLAUDIA ZAMARRIPA MD Location:[facility] Appointment Type:PC OV Appointment Date:02/01/2022 09:45:00 AM Scheduled Provider:DANIEL WU Location:[facility] Appointment Type:CV OV Appointment Date:02/23/2022 08:15:00 AM Scheduled Provider: Location:[facility] Appointment Type:CV Remote Procedure [facility] Evaluation + Plan note Future Appointments Appointment Date:02/01/2022 09:45:00 AM Scheduled Provider:DANIEL WU Location:[facility] Appointment Type:CV OV Appointment Date:02/23/2022 08:15:00 AM Scheduled Provider: Location:[facility] Appointment Type:CV Remote Procedure [facility] Evaluation + Plan note Future Appointments Appointment Date:07/06/2022 01:45:00 PM Scheduled Provider: Location:[facility] Appointment Type:CV Remote Procedure Appointment Date:09/13/2022 09:00:00 AM Scheduled Provider:KITTY CHEUNG DO Location:[facility] Appointment Type:PC OV Follow Up Appointment Date:02/07/2023 10:30:00 AM Scheduled Provider: Location:[facility] Appointment Type:CV OV [facility] Evaluation + Plan note Future Appointments Appointment Date:09/13/2022 09:00:00 AM Scheduled Provider:KITTY CHEUNG DO Location:[facility] Appointment Type:PC OV Follow Up Appointment Date:09/25/2022 01:15:00 PM Scheduled Provider: Location:[facility] Appointment Type:CV Remote Procedure Appointment Date:02/07/2023 10:30:00 AM Scheduled Provider: Location:[facility] Appointment Type:CV OV Diagnostic Tests PendingAntinuclear Antibody Screen, Serum 07/19/22 [facility] Evaluation + Plan note Future Appointments Appointment Date:02/07/2023 10:30:00 AM Scheduled Provider: Location:[facility] Appointment Type:CV OV Appointment Date:04/10/2023 04:00:00 PM Scheduled Provider: Location:[facility] Appointment Type:CV Office Procedure ILR Appointment Date:05/02/2023 09:30:00 AM Scheduled Provider:KITTY CHEUNG DO Location:[facility] Appointment Type:PC OV Appointment Date:07/10/2023 02:15:00 PM Scheduled Provider: Location:[facility] Appointment Type:CV Remote Procedure HM Appointment Date:10/10/2023 01:15:00 PM Scheduled Provider: Location:[facility] Appointment Type:CV Remote Procedure HM Appointment Date:01/10/2024 01:30:00 PM Scheduled Provider: Location:[facility] Appointment Type:CV Remote Procedure HM Future Scheduled TestsC-Reactive Protein 10/13/22Sedimentation Rate Automated 10/13/22 [facility] Evaluation + Plan note Future Appointments Appointment Date:07/20/2023 11:00:00 AM Scheduled Provider:NELL AGUILAR Location:[facility] Appointment Type:CV OV Appointment Date:10/03/2023 09:30:00 AM Scheduled Provider:KITTY CHEUNG DO Location:[facility] Appointment Type:PC OV Appointment Date:10/10/2023 01:15:00 PM Scheduled Provider: Location:[facility] Appointment Type:CV Remote Procedure HM Appointment Date:01/10/2024 01:30:00 PM Scheduled Provider: Location:[facility] Appointment Type:CV Remote Procedure HM Appointment Date:02/13/2024 09:00:00 AM Scheduled Provider: Location:[facility] Appointment Type:CV Office Procedure ILR Appointment Date:02/13/2024 09:15:00 AM Scheduled Provider: Location:[facility] Appointment Type:CV OV Appointment Date:05/21/2024 04:00:00 PM Scheduled Provider: Location:[facility] Appointment Type:CV Remote Procedure HM Diagnostic Tests PendingUrine Culture 07/17/23 Future Scheduled TestsC-Reactive Protein 10/13/22Sedimentation Rate Automated 10/13/22 [facility] Evaluation + Plan note Future Appointments Appointment Date:01/10/2024 01:30:00 PM Scheduled Provider: Location:[facility] Appointment Type:CV Remote Procedure HM Appointment Date:02/13/2024 09:00:00 AM Scheduled Provider: Location:[facility] Appointment Type:CV Office Procedure ILR Appointment Date:02/13/2024 09:15:00 AM Scheduled Provider: Location:[facility] Appointment Type:CV OV Appointment Date:04/09/2024 09:30:00 AM Scheduled Provider:KITTY CHEUNG DO Location:[facility] Appointment Type:PC OV Appointment Date:05/21/2024 04:00:00 PM Scheduled Provider: Location:[facility] Appointment Type:CV Remote Procedure HM Future Scheduled TestsC-Reactive Protein 10/13/22Sedimentation Rate Automated 10/13/22 [facility] Hospital course Narrative No data available for this section [facility] Hospital Discharge instructions No data available for this section [facility] Progress note No data available for this section [facility] Summary Purpose Family History No Family History Records Found No data available for this section No data available for this section No Family History Records Found Advance Directives No Advanced Directives Records FoundNo Advanced Directives Records Found Additional Source Comments (unrecognized sect ion and content) No Status Records FoundNo Status Records Found INFORMATION SOURCE (unrecogn ized section and content) DATE CREATED AUTHOR AUTHOR'S ORGANIZ ATION 10/26/2023 [facility] ([place]) Care Team (unrecognized sect ion and content) Care Team Personnel Name: KENNETH LOTT MD Position: P4 Physician - Cardiology Address: Address: [address] [place] [address] Name: KITTY CHEUNG DO Position: P4 Physician - Primary Care Member Role: Primary Care Physician Address: Address: [address] [place] [address] [place] Care Team Related Persons Name: ELSA MERCADO Care Team Personnel Name: KENNETH LOTT MD Position: P4 Physician - Cardiology Med Service: Active Provider Member Role: Pick Up Truck Driver Address: Address: [address] [place] [address] Name: KITTY CHEUNG DO Position: P4 Physician - Primary Care Med Service: Active Provider Member Role: Primary Care Physician Address: Address: [address] [place] [address] [place] [address]- Care Team Related Persons Name: ELSA MERCADO Patient Care team informatio n (unrecognized section and content) Care Team Personnel Name: KENNETH LOTT MD Position: P4 Physician - Cardiology Member Role: Pick Up Truck Driver Address: Address: [address] [facility] [address] [place] [address]- Name: KITTY CHEUNG DO Position: P4 Physician - Primary Care Member Role: Primary Care Physician Address: Address: [address] [place] [address]- Name: ELLEN ANDERSON MD Position: ED Physician Member Role: Attending Physician Address: Address: [facility] [place] [address]- Care Team Related Persons Name: ELSA MERCADO Care Team Personnel Name: KENNETH LOTT MD Position: P4 Physician - Cardiology Member Role: Pick Up Truck Driver Address: Address: [address] [facility] [address] [place] [address]- Name: KITTY CHEUNG DO Position: P4 Physician - Primary Care Member Role: Primary Care Physician Address: Address: [address] [place] [address] Care Team Related Persons Name: ELSA MERCADO Care Team Personnel Name: KENNETH LOTT MD Position: P4 Physician - Cardiology Member Role: Pick Up Truck Driver Address: Address: [address] [facility] [address] [place] [address]- Name: KITTY CHEUNG DO Position: P4 Physician - Primary Care Member Role: Primary Care Physician Address: Address: [address] [place] [address]- Name: ILYA Gabriel Position: ED RN Member Role: ED RN Name: PEREZ HAIDER MD Position: Resident Member Role: Resident Address: Address: [address] [place] [address] [place] [address]- Name: SAMIRA BOYER MD Position: ED Physician Member Role: Attending Physician Address: Address: [facility] [address] [place] [address]- Care Team Related Persons Name: ELSA MERCADO FOR RECORDS PERTAINING TO PATIENTS WHO ARE OR HAVE BEEN ENROLLED IN A CHEMICAL DEPENDENCY/SUBSTANCEABUSE PROGRAM, SOME INFORMATION MAY BE OMITTED. This clinical summary was aggregated from multiple sources. Caution should be exercised in using it in the provision of clinical care. This summary normalizes information from multiple sources, and as a consequence, information in this document may materially change the coding, format and clinical context of patient data. In addition, data may be omitted in some cases. CLINICAL DECISIONS SHOULD BE BASED ON THE PRIMARY CLINICAL RECORDS. [facility] [employer] [facility] provides no warranty or guarantee of the accuracy or completeness of information in this document.
[2023-10-27] MEDS: Ondansetron 4 MG/2 ML Vial IV (14:17)
[2023-10-27] MEDS: Meclizine HCl 25 MG Tablet PO (14:18)
[2023-10-27 14:24] LABS: Absolute Lymphocyte Count 1.37 X10^3/uL (0.83-4.51); Absolute Neutrophil Count 6.4 X10^3/uL (2.0-7.7); Basophil# 0.01 X10^3/uL; Basophil% 0.1 % (0-1); Eosinophil# 0.11 X10^3/uL; Eosinophils% 1.3 % (0-5); Hematocrit 46.1 % (40-54); Hemoglobin 15.5 g/dL (13.0-16.5); Lymphocyte # 1.37 X10^3/ul (0.83-4.51); Lymphocyte % 16.2 % (19-41); Mean Corp Hgb Conc 33.6 g/dL (32-36); Mean Corpuscular Hgb 31.3 pg (27.0-32.0); Mean Corpuscular Volume 92.9 fL (80-94); Monocyte# 0.57 X10^3/uL; Monocyte% 6.7 % (0-10); NRBC Flagged by Analyzer 0 % (0-5); Neutrophil # 6.39 X10^3/uL (2.7-7.7); Neutrophil % 75.3 % (47-70); Platelet Count 304 K/mm3 (150-450); RBC Distribution Width CV 13.9 % (11.6-14.6); RBC Distribution Width SD 46.5 fl (35.1-43.9); Red Blood Count 4.96 M/mm3 (4.6-6.2); White Blood Count 8.5 K/mm3 (4.4-11.0)
[2023-10-27 14:39] LABS: Anion Gap 3 (5-15); BUN 25 mg/dL (7-18); BUN/Creat Ratio 24.5 RATIO (10-20); Calcium,Total 9.8 mg/dL (8.5-10.1); Chloride 111 mmol/L (98-107); Creatinine, Serum 1.02 mg/dL (0.70-1.30); EST Glomerular Filtration Rate 77 mL/min (>60); Est Glom Filt Rate - Afr Amer 94 mL/min (>60); Estimated Creatinine Clearance 61.13 ml/min; Glucose 165 mg/dL (74-106); Potassium 4.7 mmol/L (3.5-5.1); Sodium Level 144 mmol/L (136-145)
[2023-10-27 15:35] VITALS: BP 158/80; O2SAT 95
[2023-10-27 16:20] VITALS: BP 158/80; PULSE 75; RESP 16; O2SAT 96
--- NOTE | 2023-10-27 16:20 | ED.RN ---
pt able to sit on side of bed and much improved. dc papers given and no questions. refused wc at this this time. aware to monitor bp for few days and call pcp for appt
== END 2023-10-27 16:21 | disposition home or self-care (01) ==
PROVIDERS: Emergency Provider Emergency Medicine; PCP Preventive Medicine Occupational Medicine; Visit Provider Emergency Medicine
DX: R42 Dizziness and giddiness (principal); Z87.891 Personal history of nicotine dependence; E78.00 Pure hypercholesterolemia, unspecified; I10 Essential (primary) hypertension
CPT/HCPCS: 70496; 70498; 80048; 85025; 93005; 96374; 99283; Q9967; A4216; J2405